=== PATIENT | female | born 1950 | race Caucasian/White ===

== ENCOUNTER 2019-08-17 11:20 | Outpatient (REF) | payer MEDICARE, MEDICAID, SELFPAY ==
[2019-08-17 12:09] LABS: HCT 42.1 % (36.0-46.0); HGB 13.8 g/dL (12.0-15.5); Mean Corp. HGB Concentration 32.8 g/dL (32.0-36.0); Mean Corpuscular Hemoglobin 30.3 pg (27.0-33.0); Mean Corpuscular Volume 92.3 fL (80-95); Mean Platelet Volume 10.7 fL (8.0-11.0); Platelet Count 182 x1000/uL (130-400); RBC 4.56 m/cumm (4.00-5.20); RBC Distribution Width 13.8 % (11.7-14.6); White Blood Cell Count 6.86 k/cumm (4.4-10.8)
[2019-08-17 12:37] LABS: ALT 13 U/L (14-59); AST 14 U/L (15-37); Albumin 3.6 g/dL (3.4-5.0); Alkaline Phosphatase 78 U/L (46-116); Anion Gap 9.1 mmol/L (3-11); BUN 16 mg/dL (7-18); Bilirubin, Total 0.2 mg/dL (0.2-1.0); CO2 26.9 mmol/L (21.0-32.0); CREATININE 0.78 mg/dL (0.55-1.02); Calcium 8.1 mg/dL (8.5-10.1); Chloride 106 mmol/L (98-107); Glucose 116 mg/dL (74-106); Potassium 4.2 mmol/L (3.5-5.1); Sodium 142 mmol/L (136-145); TSH (W/Ref FT4) 12.66 uIU/mL (0.36-3.74); Total Protein 6.4 g/dL (6.4-8.2); Uric Acid 4.4 mg/dL (2.6-6.0)
[2019-08-17 13:01] LABS: FREE T4 1.01 ng/dL (0.76-1.46)
[2019-08-17 13:54] LABS: Vitamin B12 204 pg/mL (193-986)
[2019-08-18 07:59] LABS: Vitamin D 25 Total < 5 ng/ml (30-100)
== END 2019-08-17 11:40 ==
LOC: NCHCN 11:20
PROVIDERS: PCP Internal Medicine; Visit Provider Internal Medicine
DX: I10 Essential (primary) hypertension (principal); E55.9 Vitamin D deficiency, unspecified; F41.8 Other specified anxiety disorders; R41.3 Other amnesia; N39.46 Mixed incontinence; M48.061 Spinal stenosis, lumbar region without neurogenic claudication; M13.861 Other specified arthritis, right knee; J44.9 Chronic obstructive pulmonary disease, unspecified
CPT/HCPCS: 80053; 82306; 85027; 82607; 84439; 84443; 84550

== ENCOUNTER 2020-04-11 10:53 | Outpatient (REF) | payer MEDICARE, MEDICAID, SELFPAY ==
[2020-04-11 21:33] LABS: FREE T4 1.07 ng/dL (0.76-1.46); TSH 6.82 uIU/mL (0.36-3.74)
[2020-04-13 05:41] LABS: Vitamin D 25 Total 25.4 ng/ml (30-100)
== END 2020-04-11 11:13 ==
LOC: NCHCN 10:53
PROVIDERS: PCP Internal Medicine; Visit Provider Internal Medicine
DX: F41.8 Other specified anxiety disorders (principal); E55.9 Vitamin D deficiency, unspecified
CPT/HCPCS: 82306; 84439; 84443

== ENCOUNTER 2021-09-04 15:15 | Outpatient (REF) | payer MEDICARE, MEDICAID, SELFPAY ==
[2021-09-04 14:46] LABS: FREE T4 1.05 ng/dL (0.76-1.46); TSH 4.57 uIU/mL (0.36-3.74)
[2021-09-05 09:52] LABS: Anion Gap 10.6 mmol/L (3-11); BUN 16 mg/dL (7-18); CO2 25.4 mmol/L (21.0-32.0); CREATININE 0.9 mg/dL (0.55-1.02); Calcium 8.7 mg/dL (8.5-10.1); Chloride 101 mmol/L (98-107); Glucose 127 mg/dL (74-106); Potassium 4.2 mmol/L (3.5-5.1); Sodium 137 mmol/L (136-145)
== END 2021-09-04 15:16 | disposition home or self-care (01) ==
LOC: NCHCN 15:15
PROVIDERS: PCP Internal Medicine; Visit Provider Internal Medicine
DX: E03.9 Hypothyroidism, unspecified (principal); I10 Essential (primary) hypertension
CPT/HCPCS: 80048; 84439; 84443

== ENCOUNTER 2022-02-05 11:09 | Emergency (ER) | payer MEDICARE, MEDICAID, SELFPAY ==
[2022-02-05] VITALS (17 sets, daily range): BP systolic 69–125; BP diastolic 46–93; PULSE 89–131; RESP 18–30; TEMP 36.6; O2SAT 90–98
--- NOTE | 2022-02-05 11:00 | RT.EKG_ITS ---
APPROVED REPORT Exam: Resting ECG Reason for Exam: respiratory distress Patient Location: E HR:104 bpm ECG Measurements Heart Rate 104 AXIS VA 134 P 57 QRSd 93 QRS 61 QT 329 T 80 QTc 433 Conclusion Sinus tachycardia...rate> 99 Ventricular premature complex...V complex w/ short R-R interval Inferior infarct, acute...ST>0.10mV, T upright, II III aVF. Inferior STEMI I have reviewed and interpreted ECG and agree with software generated interpretation.
--- NOTE | 2022-02-05 11:15 | W.ED.GENAD ---
Discharge Plan Disposition Patient Disposition: [facility] Condition: Critical Discharge Details Clinical Impression: STEMI (ST elevation myocardial infarction), Acute exacerbation of chronic obstructive pulmonary disease Primary Care Provider: Jitendra Schwab ED Provider: Kaya Ruggiero Home Meds and New Rx's Prescriptions: No Action levothyroxine 25 MCG tablet 100 mcg PO DAILY mirtazapine 30 MG tablet 30 mg PO HS naproxen 250 MG tablet 500 mg PO BID lorazepam [Ativan] 0.5 MG tablet 0.5 mg PO ONCE lansoprazole 15 MG capsule,delayed release(DR/EC) 15 mg PO DAILY gabapentin 300 MG capsule 300 mg PO TID Label Comments: 02/27/15 per pt she is currently taking this medication TID but it is not on her PCP med list. jw fluticasone propion-salmeterol [Advair Diskus] 1 EACH blister with device 2 puff Inhalation BID sennosides-docusate sodium [Senokot-S] 1 EACH tablet 1 ea PO DAILY clopidogrel [Plavix] 75 MG tablet 75 mg PO DAILY fentanyl [Duragesic] 100 MCG patch 72 hour 100 mcg Transdermal .2 DAYS fentanyl [Duragesic] 25 MCG patch 72 hour 25 mcg Transdermal .Q 2 DAYS citalopram 40 MG tablet 40 mg PO DAILY pravastatin 40 MG tablet 40 mg PO HS spironolactone 25 MG tablet 25 mg PO DAILY dicyclomine 20 MG tablet 20 mg PO PRN PRN docusate sodium [Colace] 100 MG capsule 100 mg PO DAILY bisacodyl 5 MG tablet,delayed release (DR/EC) 5 mg PO DAILY polyethylene glycol 3350 [GlycoLax] 527 GM powder 17 gm PO DAILY PRN albuterol sulfate [Ventolin HFA] 60 PUFF HFA aerosol inhaler 2 puff Inhalation .Q6HRS PRN losartan [Cozaar] 100 MG tablet 100 mg PO DAILY Spiriva with HandiHaler 18 MCG capsule, w/inhalation device 2 puff Inhalation DAILY morphine 15 MG tablet 15 mg PO TID PRN PRN diltiazem HCl 240 MG capsule,extended release 24hr 240 mg PO DAILY albuterol sulfate [ProAir HFA] 8.5 GM HFA aerosol inhaler 2 puff Inhalation Q6H PRN PRN pregabalin [Lyrica] 50 MG capsule 50 mg PO TID Discharge Data Discharge Date/Time-TO BE ENTERED AT DEPARTURE: 02/05/22 12:46 Medical Decision Making 1120 -- 71-year-old female who is DNI with a history of COPD, tobacco dependence, hypertension, arthritis, anxiety presents per EMS as a STEMI alert with respiratory failure and hypoxia. Oxygen saturation 48% on room air on EMS arrival on scene, improved to 94% after 3 nebs and CPAP. Patient arrived to the ED with CPAP in place stating I cannot breathe . Blood pressure 108/65. Heart rate 100. Oxygen saturation 94% on CPAP. She has scattered wheezing throughout. 125 Solu-Medrol, DuoNeb and morphine ordered. EKG notes inferior STEMI. [facility] transfer initiated. Rectal aspirin ordered. Heparin bolus and drip ordered. We will hold on Plavix but she is unable to take p.o. with bipap. 1130 -- Case discussed with patient's daughter over the phone who confirms that patient told Dr. Schwab this morning she has DNI. Daughter states she feels that she is not DNR but she is unsure. She is agreeable with plan for transfer to [facility] for STEMI. Son is now at bedside as well and is agreeable with plan for transfer as patient is drowsy and in distress to answer. 1145 --Case discussed with [facility] cardiology who accepts patient for transfer. Accepting physician Dr. Burns. They were informed we were unable to give oral Plavix due to bipap. Patient appears to be more comfortable and tolerating BIPAP better after morphine and Ativan. Pt go to by [facility]. 1205 --portable chest x-ray revealed complete whiteout of right lung --discussed with radiology who notes that this could likely be effusion but cannot exclude underlying consolidation. White blood cell count 22. We will start IV antibiotics. She is now hypotensive at 75/54. We will bolus with IV fluids but give a dose of 40 mg Lasix. Medical Records Medical records reviewed: Yes I reviewed the patient's medical records. ECG Data Attestation: I personally reviewed and interpreted this ECG (s) as follows: Interpretation: rate of 104, sinus, 2-[address] elevation in inferior leads, 1mm ST elevation in V5-6. HPI General Date/Time Provider Initiated Documentation: 02/05/22 11:14. Limitations to Documentation: altered mental status and physical limitation. Information obtained by: patient and EMS. HPI Narrative: Patient is a 71-year-old female with a history of tobacco dependence, COPD, hypertension and anxiety presents from home for cough and shortness of breath with report of respiratory failure, hypoxia and concern for STEMI. EMS reports that daughter called PCP office for evaluation for her mom for cough and increasing shortness of breath. Upon EMS arrival on scene oxygen saturation 48% on room air which increased to 94% on CPAP and [address] elevation on ekg. patient arrived to the ED wearing CPAP stating I cannot breathe Related Data Home Medications Medication Instructions Recorded Confirmed albuterol sulfate 90 mcg/actuation 2 puff inhalation .Q6HRS PRN 04/11/13 02/05/22 aerosol inhaler (Ventolin HFA) bisacodyl 5 mg tablet,delayed 5 mg PO DAILY 04/11/13 02/05/22 release citalopram 40 mg tablet 40 mg PO DAILY 04/11/13 02/05/22 clopidogrel 75 mg tablet (Plavix) 75 mg PO DAILY 04/11/13 02/05/22 dicyclomine 20 mg tablet 20 mg PO PRN PRN 04/11/13 02/05/22 docusate sodium 100 mg capsule 100 mg PO DAILY 04/11/13 02/05/22 (Colace) fentanyl 100 mcg/hr transdermal 100 mcg transdermal .2 DAYS 04/11/13 02/05/22 patch (Duragesic) fentanyl 25 mcg/hr transdermal 25 mcg transdermal .Q 2 DAYS 04/11/13 02/05/22 patch (Duragesic) fluticasone 250 mcg-salmeterol 50 2 puff inhalation BID 04/11/13 02/05/22 mcg/dose blistr powdr for inhalation (Advair Diskus) losartan 100 mg tablet (Cozaar) 100 mg PO DAILY 04/11/13 02/05/22 polyethylene glycol 3350 17 17 gm PO DAILY PRN 04/11/13 02/05/22 gram/dose oral powder (GlycoLax) pravastatin 40 mg tablet 40 mg PO HS 04/11/13 02/05/22 sennosides 8.6 mg-docusate sodium 1 ea PO DAILY 04/11/13 02/05/22 50 mg tablet (Senokot-S) spironolactone 25 mg tablet 25 mg PO DAILY 04/11/13 02/05/22 tiotropium bromide 18 mcg capsule 2 puff inhalation DAILY 04/11/13 02/05/22 with inhalation device (Spiriva with HandiHaler) gabapentin 300 mg capsule 300 mg PO TID 07/25/14 02/05/22 lansoprazole 15 mg capsule,delayed 15 mg PO DAILY 07/25/14 02/05/22 release levothyroxine 25 mcg tablet 100 mcg PO DAILY 07/25/14 02/05/22 lorazepam 0.5 mg tablet (Ativan) 0.5 mg PO ONCE 07/25/14 02/05/22 mirtazapine 30 mg tablet 30 mg PO HS 07/25/14 02/05/22 naproxen 250 mg tablet 500 mg PO BID 07/25/14 02/05/22 albuterol sulfate 90 mcg/actuation 2 puff inhalation Q6H PRN PRN 02/27/15 02/05/22 aerosol inhaler (ProAir HFA) diltiazem HCl 240 mg 240 mg PO DAILY 02/27/15 02/05/22 capsule,extended release 24 hr morphine 15 mg immediate release 15 mg PO TID PRN PRN 02/27/15 02/05/22 tablet pregabalin 50 mg capsule (Lyrica) 50 mg PO TID 02/27/15 02/05/22 Allergies Allergy/AdvReac Type Severity Reaction Status Date / Time aspirin [From Aggrenox] AdvReac Intermediate per pt on Unverified 03/01/15 13:31 blood thinners can't take asa atorvastatin calcium AdvReac Intermediate Unverified 03/01/15 13:46 [From Lipitor] dipyridamole [From Aggrenox] AdvReac Intermediate HEADACHE Unverified 03/01/15 13:31 enalapril AdvReac Intermediate HIVES Unverified 03/01/15 13:46 lactulose AdvReac Intermediate VOMITING Unverified 03/01/15 13:31 niacin AdvReac Intermediate HEADACHE Unverified 03/01/15 13:31 [From Niaspan Extended-Release] sulfamethoxazole AdvReac Intermediate HIVES Unverified 03/01/15 13:46 [From Bactrim] trimethoprim [From Bactrim] AdvReac Intermediate HIVES Unverified 03/01/15 13:46 verapamil AdvReac Intermediate MULTIPLE Unverified 03/01/15 13:46 General Stated Complaint: SOB KARTHIKEYAN: 2 Review of Systems Unobtainable due to mental status Constitutional Constitutional: Denies chills, Denies excessive sweating, Denies fatigue, Denies fever(s), Denies weakness and Denies weight loss Eyes Eyes: Reports system reviewed and no additional complaints, except as documented and Denies blurry vision ENT Ears, Nose, Mouth, and Throat: Denies vertigo, Denies dizziness, Denies otalgia, Denies nasal congestion, Denies sore throat and Denies throat swelling Cardiovascular Cardiovascular: Denies chest pain, Denies syncope, Denies rapid heart rate and Reports dyspnea Respiratory Respiratory: Denies chest congestion, Reports cough, Denies pain on inspiration and Reports dyspnea Gastrointestinal Gastrointestinal: Denies abdominal pain, Denies diarrhea and Denies vomiting Genitourinary Genitourinary: Denies hematuria, Denies dysuria and Denies flank pain Musculoskeletal Musculoskeletal: Denies back pain and Denies joint swelling Integumentary/Breasts Skin/Breast: Denies lesions and Denies rash Neurologic Neurologic: Denies behavioral changes, Denies confusion, Denies vertigo, Denies dizziness, Denies syncope, Denies localized weakness and Denies weakness Psychiatric Psychiatric: Denies behavioral changes, Denies confusion and Denies depression Endocrine Endocrine: Denies excessive sweating and Denies fatigue Hematologic/Lymphatic Hematologic/Lymphatic: Denies easy bruising and Denies lymphadenopathy Allergic/Immunologic Allergic/Immunologic: Denies throat swelling PFSH All Active Problems (Updated 02/05/22 @ 11:47 by Kaya Ruggiero DO) STEMI (ST elevation myocardial infarction) (Acute) Acute exacerbation of chronic obstructive pulmonary disease (Acute) Medical History (Updated 02/05/22 @ 11:47 by Kaya Ruggiero DO) Anxiety Arthritis carotid arterosclerosis Chronic pain COPD CVA Depression hematuria History of hypertension Incontinence Insomnia Memory impairment Tobacco use disorder Surgical History (Updated 05/13/18 @ 14:33 by Hingi AK) Extraction of cataract bilateral Hysterectomy, Laproscopic no date given.HE Social History Smoking/Tobacco Use Status: Current every day Smoking risk assessment performed?: Yes Drug use: Never Exam Const General: cooperative, disheveled, ill appearing chronically and other (drowsy but arousable. ) [facility] Head: normal to inspection Ears: hearing grossly normal bilaterally, external ears normal and TM's normal bilaterally General nose exam: external nose normal Face and sinus: normal facial exam Mouth: oral mucosae normal Teeth and gingiva: dentition normal Throat: posterior oropharynx normal Eyes General: appearance normal, both eyes and all related structures Eyelids: eyelids normal Pupils: PERRL EOM: EOM intact bilaterally Neck Neck: normal visual inspection Lymphatic: no lymphadenopathy noted Chest Chest: normal inspection of the chest Resp Effort & Inspection: normal respiratory effort and able to speak in complete sentences Auscultation: wheezes scattered wheezes Cardio Rate: regular rate Rhythm: regular rhythm GI Inspection: normal to inspection Palpation: soft, not firm, no guarding, no hepatosplenomegaly, no masses and nontender Auscultation: normal bowel sounds Back/Spine/Pelvis Back: no CVA tenderness Skin General skin exam: no rashes or lesions noted Neuro General: patient alert and patient awake Cognition: normal cognition Speech: speech normal Gait: normal gait Motor: muscle tone normal throughout Sensory Exam: no sensory deficits noted Extrem General: normal to inspection, full ROM and capillary refill normal Psych Appearance: grossly normal Mental Status: mental status grossly normal Speech and Movement: speech and movement normal Affect: normal affect Thought Process: normal Critical Care Time Critical Care Time Critical Care Time: Yes Total Critical Care Time: 90 Attestation: I spent 90 minutes of critical care time with this patient. This does not include time spent on separately reported billable procedures.
[2022-02-05] MEDS: methylPREDNISolone SUCC 125 MG VIAL (11:18)
[2022-02-05] MEDS: MORPHine 4 MG/ML SYR IVP (11:19)
--- NOTE | 2022-02-05 11:30 | DI.RAD_ITS ---
Exam(s) XR PORTABLE CHEST AP EXAM: XR PORTABLE CHEST AP CLINICAL HISTORY: chest pain, sob, r/o acute disease TECHNIQUE: 2D digital imaging was performed of the chest. One image was obtained. An AP view was ob tained. COMPARISON: CR CHEST 2 VIEWS PA,LAT from 09/13/2009 CT HEAD WITHOUT CONTRAST from 07/26/2014 FINDINGS: MEDIASTINUM: Normal. HEART: Cardiac silhouette is obscured on the right due to the right hemithorax opacification. PULMONARY VASCULATURE: Normal. LUNGS: There is near complete opacification of the right hemithorax with an area of lung seen in the upper half. This appears to in some part represent a right pleural effusion. An area of right conso lidation cannot be excluded in the right lung base. Underlying mass should also be considered. Ther e is a small area of infiltrate in the left mid lung. No left pleural effusion or pneumothorax is id entified. PLEURAL SPACE: No pleural effusion or pneumothorax. BONE:Within normal limits for the patient's age. OTHER FINDINGS:Normal. IMPRESSION: 1. Near complete opacification of the right hemithorax. This in part is related to a right pleural e ffusion. A right mass or consolidation in the right lung should also be considered. A CT scan of th e chest should be obtained for further evaluation. 2. Small opacity in the left mid lung which may represent atelectasis or pneumonia. 3. Results of this exam have been verbally communicated with provider. DATA REPOSITORY: RADIATION DOSE DELIVERED:
[2022-02-05 11:37] LABS: Source Nasal/Nares
[2022-02-05 11:39] LABS: Abs Immature Grans 0.17 10^3/uL (0.0-0.06); Absolute Monocyte Count 1.27 10^3/uL (0.1-0.8); Absolute Neutrophil Count 20.24 10^3/uL (1.2-6.7); Basophils % 0.1; Eosinophils % 0.3; HCT 35.8 % (36.0-46.0); HGB 12.5 g/dL (11.2-15.7); Immature Grans % 0.8; Lymphocytes % 3.9; MCH 29.9 pg (27.0-33.0); MCHC 34.9 % (32.0-36.0); MCV 86 fL (80-95); MPV 10.5 fL (8.0-11.0); Monocytes % 5.6; Neutrophils % 89.3; Platelet Count 328 10^3/uL (130-400); RBC 4.18 10^6/uL (3.93-5.22); RDW 13.5 % (11.7-14.6); RDW-SD 41.8 fL; WBC 22.66 10^3/uL (4.4-10.8)
[2022-02-05] MEDS: Albuterol/Ipratropium 3 ML UPD VIAL UPD (11:40)
[2022-02-05] MEDS: LORazepam 2 MG/ML VIAL 1 MG IVP (11:40)
[2022-02-05 11:42] LABS: Absolute Basophil Count 0.02 10^3/uL (0.0-0.2); Absolute Eosinophil Count 0.07 10^3/uL (0.0-0.7); Absolute Lymphocyte Count 0.88 10^3/uL (1.2-3.4)
[2022-02-05 11:52] LABS: INR 1.3 (0.9-1.1); PTT Activated 23.7 sec (21.0-27.5); Prothrombin Time 12.7 sec (9.3-11.0)
[2022-02-05 11:55] LABS: Diff Comment Agrees w/ Instrument; RBC Morphology Normal
[2022-02-05] MEDS: Aspirin 300 MG SUPP PR (11:58)
[2022-02-05 12:03] LABS: ALT 21 U/L (14-59); AST 44 U/L (15-37); Albumin 2.1 g/dL (3.4-5.0); Alkaline Phosphatase 137 U/L (46-116); Anion Gap 11.3 mmol/L (3-11); BUN 50 mg/dL (7-18); Bilirubin, Total 0.6 mg/dL (0.2-1.0); CO2 24.7 mmol/L (21.0-32.0); CREATININE 1.2 mg/dL (0.55-1.02); Calcium 8.5 mg/dL (8.5-10.1); Chloride 88 mmol/L (98-107); Estimated GFR 44.16 (mL/min/1.73m2); Glucose 104 mg/dL (74-106); Magnesium 2.3 mg/dL (1.8-2.4); Potassium 5.1 mmol/L (3.5-5.1); Total Protein 6.8 g/dL (6.4-8.2)
[2022-02-05 12:04] LABS: Sodium 124 mmol/L (136-145); Troponin I 4264 ng/L (<or=60)
--- OUTSIDE RECORDS SUMMARY | 2022-02-05 12:16 | XMS_ITS | Encounter Summary ---
:1950 Author Organization [place] [address] Care Team Providers Name Role Phone Jitendra Schwab MD Primary Care Provider Encounter Details Date Type Department Care Team Description 12/02/2014 Telephone Pain Management at [facility] [place], [place] [id number] Social History Tobacco Use Types Packs/Day Years Used Date Current Every Day Smoker 0.5 Alcohol Use Standard Drinks/Week Comments No 0 (1 standard drink = 0.6 oz pure alcoho l) Sex Assigned at Date Recorded Not on file documented as of this encounter Miscellaneous Notes Telephone Encounter - Vandana Harris, [employer] - 12/02/2014 1:18 PM EDT Gianna Hermosillo :1950 Message left: I left a message on answering machine Ms. Hermosillo at 1:18 PM regarding her upcoming Neither lumbar epidural steroid injection with Dr. Fozia Rosa MD. Message included the followin. Patient instructed to arrive at 10:15 (30 minutes prior to procedure start time) on 12-06-14 (dateof procedure) with their customer service driver. 2. Following instructions left in the message: - Bring Updated list of medications including dosage and reason for taking. - Call the Pain Clinic Nurse at for: ~Procedure instructions. ~If you are taking antibiotics. ~If you have any signs or symptoms of infection, cold or flu. ~If you have any skin breakdown (rashes, cysts, or abscess.) ~If you are taking anticoagulants / blood thinners (Plavix, Pletal, Lovenox, Coumadin, etc). ~If you had any steroid injections anywhere in your body within the last two weeks? 3. If patient NPO: No food after (6 hours prior to procedure start time); clear fluids only up until(2 hours prior to procedure start time) Vandana Harris LPN documented in this encounter Plan of Treatment Not on filedocumented as of this encounter Visit Diagnoses Not on filedocumented in this encounter Care Teams Podiatry Assistant Relationship Specialty Start Date End Date Jitendra Schwab MD PCP - General 06/19/10 [address] [place] [address] documented as of this encounter
--- OUTSIDE RECORDS SUMMARY | 2022-02-05 12:16 | XMS_ITS | Encounter Summary ---
:1950 [place] [address] Care Team Providers Name Role Phone Jitendra Schwab MD Primary Care Provider Encounter Details Date Type Department Care Team Description 06/21/2014 Telephone Pain Management at [place] [address] Social History Tobacco Use Types Packs/Day Years Used Date Current Every Day Smoker 0.5 Alcohol Use Standard Drinks/Week Comments No 0 (1 standard drink = 0.6 oz pure alcoho l) Sex Assigned at Date Recorded Not on file documented as of this encounter Miscellaneous Notes Telephone Encounter - Mansi Muñoz LPN - 06/21/2014 4:03 PM EST Gianna Hermosillo :1950 Message left: I left a message on answering machine Ms. Hermosillo at 4:03 PM regarding her upcoming lumbar epidural steroid injection with Dr. Giovanni Davalos MD. Message included the followin. Patient instructed to arrive at 1445 (30 minutes prior to procedure start time) on 06/22/14 (dateof procedure) with their driver examiner. 2. Following instructions left in the message: [...] 3. If patient NPO: No food after 0915 (6 hours prior to procedure start time); clear fluids only up until 1315 (2 hours prior to procedure start time) Mansi Muñoz LPN documented in this encounter Plan of Treatment Not on filedocumented as of this encounter Visit Diagnoses Not on filedocumented in this encounter Care Teams Informatic[employer] Architect Relationship Specialty Start Date End Date Jitendra Schwab MD PCP - General 06/19/10 [address] [place] [address] documented as of this encounter
--- OUTSIDE RECORDS SUMMARY | 2022-02-05 12:16 | XMS_ITS | Clinical Summary ---
:1950 Author Organization [facility] [place] [address] Care Team Providers Name Role Phone Jitendra Schwab MD Primary Care Provider Allergies Active Allergy Reactions Severity Noted Date Comments Aspirin-Dipyridamole 01/07/2013 Headach e Sulfamethoxazole-Trimetho 01/07/2013 prim Enalapril Maleate 01/07/2013 Lactulose Nausea And Vomiting 01/07/2013 Atorvastatin 01/07/2013 Headache Niacin 01/07/2013 Headache Oxycodone Hcl Hives 01/07/2013 Mirtazapine 01/07/2013 Weight gain Verapamil 01/07/2013 Multiple side effects Medications Medication Sig Dispensed Refills Start Date End Date Status Eye Lubricant Apply 1 drop to eye 5 mL 6 08/07/2012 Active Combination No.1 4 times daily. (FRESHKOTE) 2-0.9-1.8 % Drop bisacodyl (DULCOLAX) Take 5-15 mg by 0 Active 5 mg EC tablet mouth daily. albuterol (PROVENTIL Inhale 2 puffs into 0 Active HFA;VENTOLIN HFA) 90 the lungs every 6 mcg/actuation inhaler hours as needed. albuterol (PROVENTIL) Take by 0 Active 2.5 mg /3 mL (0.083 nebulization every %) nebulizer solution 6 hours. dicyclomine (BENTYL) Take 20 mg by mouth 0 Active 20 mg tablet 4 times daily as needed. spironolactone Take 25 mg by mouth 0 Active (ALDACTONE) 25 mg daily. tablet naproxen (NAPROSYN) Take 375 mg by 0 Active 375 mg tablet mouth 2 times daily. tiotropium (SPIRIVA Inhale 18 mcg into 0 Active WITH HANDIHALER) 18 the lungs daily. mcg inhalation capsule losartan (COZAAR) 100 Take 100 mg by 0 Active mg tablet mouth daily. pravastatin Take 40 mg by mouth 0 Active (PRAVACHOL) 40 mg daily. tablet senna-docusate Take 2 tablets by 0 Active (SENOKOT-S) 8.6-50 mg mouth 2 times per tablet daily. omeprazole (PRILOSEC Take 20 mg by mouth 0 Active OTC) 20 mg tablet 2 times daily. fluticasone-salmetero Inhale 1 puff into 0 Active l (ADVAIR DISKUS) the lungs 2 times 250-50 mcg/dose daily. diskus inhaler clopidogrel (PLAVIX) Take 75 mg by mouth 0 Active 75 mg tablet daily. docusate sodium (DOK) Take 100-200 mg by 0 Active 100 mg capsule mouth 2 times daily. zolpidem (AMBIEN) 10 Take 10 mg by mouth 0 Active mg tablet nightly. DILTiazem (DILT-CD) Take 120 mg by 0 Active 120 mg 24 hr capsule mouth daily. morphine (MSIR) 15 mg Take 15 mg by mouth 0 Active tablet 4 times daily as needed. fentaNYL (DURAGESIC) Place 1 patch onto 0 Active 100 mcg/hr the skin every other day. fentaNYL (DURAGESIC) Place 1 patch onto 0 Active 25 mcg/hr patch the skin every other day. citalopram (CELEXA) Take 40 mg by mouth 0 Active 40 mg tablet nightly. polyethylene glycol Take 17 g by mouth 0 Active (GLYCOLAX) 17 1-2 times daily. gram/dose powder milnacipran (SAVELLA) Take 100 mg by 0 Active 50 mg Tab mouth 2 times daily. 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 although she does have some symptoms tr t could be consistent with L4 and L5 pathology, as well as upper lumbar pathology with relative sparing of S1. It does not explain her upper extremities and upper body pain, particularly her facial pain and difficulty with speech that occurred at the same time as the onset of her leg pain. If her multiple sclerosis workup is negative and it is still desired to c onsider an epidural steroid it would be reasonable to schedule her for one; however, the risk of thrombotic events would have to be weighed against the potential benefit of the epidural steroid, She was evaluated by a neurologist who d id not feel she had MS, but recommended staying on plavix for prevention of possible strokes and he felt the leg pain was a radiculopathy. MRI repeat lumbar spine 02/08/2010 showed : L4-L5: Broad left paracentral foraminal and lateral protrusion along with facet arthropathy produces moderate left neural foraminal stenosis. No significant central stenosis. IMPRESSION: Disc degenerative changes a nd facet arthropathy at several levels as outlined above, most pronounced at L4-L5 where th ere is moderate left foraminal stenosis. Dr Schwab notes these additional issues: She is a poor historian. 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 H/O TIA (transient ischemic attack) and stroke Encounters Date Type Specialty Care Team Description 02/05/2022 Notes Only Cardiology Сергей Schultz MD 02/05/2022 Hospital Encounter Cardiology Claribel Burns MD 02/05/2022 Telephone Cardiology Сергей Schultz MD 02/05/2022 External Results Central Scheduling from Last 3 Months Family History Medical History Relation Comments Cataracts Father Glaucoma Mother Macular Degeneration Mother Retinal Detachment Neg Hx Relation Status Comments Father Mother Social History Tobacco Use Types Packs/Day Years Used Date Current Every Day Smoker 1 Alcohol Use Standard Drinks/Week Comments No 0 (1 standard drink = 0.6 oz pure alcoho l) Sex Assigned at Date Recorded Not on file Last Filed Vital Signs Vital Sign Reading Time Taken Comments Blood Pressure 160/80 05/08/2015 2:50 PM EDT Pulse 92 05/08/2015 2:50 PM EDT Temperature - - Respiratory Rate 16 05/08/2015 2:50 PM EDT Oxygen Saturation 95% 05/08/2015 2:50 PM EDT Inhaled Oxygen Concentration - - Weight 80.3 kg (177 lb) 05/08/2015 2:25 PM EDT Height 165.1 cm (5' 5) 05/08/2015 2:25 PM EDT Body Mass Index 29.45 05/08/2015 2:25 PM EDT Plan of Treatment Health Maintenance Due Date Last Done Comments Covid-19 Vaccine (#1) 1954 Pneumoccocal Vaccine: 65+ (1 - PCV) 1955 Hepatitis C Screening 1967 Tdap adult 1968 Tetanus vaccine 1968 Breast Cancer Share Decision Needed 1989 Colonoscopy 1994 Breast Cancer screening 1999 Zoster vaccine (1 of 2) 1999 Bone Density Scan 2014 Influenza (Flu) vaccine (1 of 1 - Influenza standard 03/28/2022 series) Procedures Procedure Name Priority Date/Time Associated Diagnosis Comme nts ECG SCAN Routine 02/05/2022 Results for thi s procedure are in the resu lts section. from Last 3 Months Results Scan Doc: ECG (02/05/2022) Narrative This result has an attachment that is no t available. Historical Provider MEDIA MGR SCAN EXT ORDR/RSLT from Last 3 Months Insurance Payer Benefit Plan / Subscriber ID Effective Dates Phone Addre ss Type Group MEDICARE MEDICARE PART [id number] 2006-Gillian [id number] [facility] [place] [id number] [place] [id number] 2019-Prese [phone] [address] [place] [address] Advance Directives Documents on File Type Date Recorded Patient Prison Psychiatrist Explanati on Advance Directives and Living 09/25/2010 4:30 PM Will Care Teams Nurse Reviewer Relationship Specialty Start Date End Date Jitendra Schwab MD PCP - General 06/19/10 [address] [place] [address]
--- OUTSIDE RECORDS SUMMARY | 2022-02-05 12:16 | XMS_ITS | Encounter Summary ---
:1950 Author Organization [facility] [place] [address] Care Team Providers Name Role Phone Jitendra Schwab MD Primary Care Provider Encounter Details Date Type Department Care Team Description 11/02/2015 Telephone Pain Management at Vandana Bryson, [place] [address] Social History Tobacco Use Types Packs/Day Years Used Date Current Every Day Smoker 1 Alcohol Use Standard Drinks/Week Comments No 0 (1 standard drink = 0.6 oz pure alcoho l) Sex Assigned at Date Recorded Not on file documented as of this encounter Miscellaneous Notes Telephone Encounter - Vandana Harris LPN - 11/02/2015 11:20 AM EDT Fluoroscopy Procedure Request Procedure Requested: Neither L5-DR or S1 lumbar epidural steroid injection Date(s) of Last Procedure: 05-08-15 Did requested procedure relieve pain? __x_ Yes - For how long 2months? 50 % of relief received from previous injection. ___ No Have you had any steroid injections anywhere in your body within the last two weeks? no Patient taking anticoagulants? ___ No x___ Yes Patient understands that they will be contacted by spring tacker once permission obtained from prescriber Dr Marty Schwab to temporarily discontinue anticoagulant plavix per [facility] protocol. Patient has pacemaker/defibrillator: No Changes in usual pain pattern or pertinent recent trauma or surgery? __x_ No, patient transferred or will be contacted by spring tacker to make appointment for requested procedure. ___ Yes, patient referred for re-evaluation by referring provider. Patient's questions regarding requested procedure were answered and patient verbalized understanding. Patient knows how to contact the [facility] and understands that they may do so at any time should they have further questions or concerns. Vandana Harris LPN documented in this encounter Plan of Treatment Not on filedocumented as of this encounter Visit Diagnoses Not on filedocumented in this encounter Care Teams Heat And Frost Insulator Helper Relationship Specialty Start Date End Date Jitendra Schwab MD PCP - General 06/19/10 [address] [place] [address] documented as of this encounter
--- OUTSIDE RECORDS SUMMARY | 2022-02-05 12:16 | XMS_ITS | Encounter Summary ---
:1950 Author Organization [place] [address] Care Team Providers Name Role Phone Jitendra Schwab MD Primary Care Provider Encounter Details Date Type Department Care Team Description 01/03/2016 Telephone Pain Management [place] [address] Social History Tobacco Use Types Packs/Day Years Used Date Current Every Day Smoker 1 Alcohol Use Standard Drinks/Week Comments No 0 (1 standard drink = 0.6 oz pure alcoho l) Sex Assigned at Date Recorded Not on file documented as of this encounter Miscellaneous Notes Telephone Encounter - Halina Goncalves LPN - 01/03/2016 12:30 PM EDT Voicemail from pt: This is Gianna Hermosillo 48. I have an appointment at 10:00. My ride fell though. I am very sorry I can't make it. I will call later to reschedule. [place] notified. documented in this encounter Plan of Treatment Not on filedocumented as of this encounter Visit Diagnoses Not on filedocumented in this encounter Care Teams Reverse Engineer Relationship Specialty Start Date End Date Jitendra Schwab MD PCP - General 06/19/10 [address] [place] [address] documented as of this encounter
--- OUTSIDE RECORDS SUMMARY | 2022-02-05 12:16 | XMS_ITS | Encounter Summary ---
:1950 Author Organization [facility] [place] [address] Care Team Providers Name Role Phone Jitendra Schwab MD Primary Care Provider Encounter Details Date Type Department Care Team Description 01/02/2016 Telephone Pain Management at [facility] Vandana Harris, [place] [address] Social History Tobacco Use Types Packs/Day Years Used Date Current Every Day Smoker 1 Alcohol Use Standard Drinks/Week Comments No 0 (1 standard drink = 0.6 oz pure alcoho l) Sex Assigned at Date Recorded Not on file documented as of this encounter Miscellaneous Notes Telephone Encounter - Vandana Harris, ELLA - 01/02/2016 1:44 PM EDT .Gianna Hermosillo :1950 Message left: I left a message on answering machine Ms. Hermosillo at 1:47 PM regarding her upcoming Neither lumbar epidural steroid injection with Dr. Giovanni Davalos MD. Message included the followin. Patient instructed to arrive at 10:00 (30 minutes prior to procedure start time) on 01-03-16 (date of procedure) with their regional driver. 2. Following instructions left in the [...] on filedocumented in this encounter Care Teams Restaurant District Manager Relationship Specialty Start Date End Date Jitendra Schwab MD PCP - General 06/19/10 [address] [place] [address] documented as of this encounter
--- OUTSIDE RECORDS SUMMARY | 2022-02-05 12:16 | XMS_ITS | Encounter Summary ---
:1950 Author Organization [facility] [place] [address] Care Team Providers Name Role Phone Jitendra Schwab MD Primary Care Provider Encounter Details Date Type Department Care Team Description 04/19/2015 Telephone Pain Management at V[place]ana [place], [place] [address] Social History Tobacco Use Types Packs/Day Years Used Date Current Every Day Smoker 0.5 Alcohol Use Standard Drinks/Week Comments No 0 (1 standard drink = 0.6 oz pure alcoho l) Sex Assigned at Date Recorded Not on file documented as of this encounter Miscellaneous Notes Telephone Encounter - Vandana Harris, ELLA - 04/19/2015 4:04 PM EDT Fluoroscopy Procedure Request Procedure Requested: Neither lumbar epidural steroid injection Date(s) of Last Procedure: 12-06-14 Did requested procedure relieve pain? _x__ Yes - For how long 3 months? 50 % of relief received from previous injection. ___ No Have you had any steroid injections anywhere in your body within the last two weeks? no Patient taking anticoagulants? ___ No __x_ Yes Patient understands that they will be contacted by mill order scheduler once permission obtained from prescriber Dr Schwab to temporarily discontinue anticoagulant plavix per [facility] protocol. Patient has pacemaker/defibrillator: No Changes in usual pain pattern or pertinent recent trauma or surgery? __x_ No, patient transferred or will be contacted by mill order scheduler to make appointment for requested procedure. ___ [...] on filedocumented in this encounter Care Teams Public Health Representative Relationship Specialty Start Date End Date Jitendra Schwab MD PCP - General 06/19/10 [address] [place] [address] documented as of this encounter
--- OUTSIDE RECORDS SUMMARY | 2022-02-05 12:16 | XMS_ITS | Encounter Summary ---
:1950 Author Organization [facility] [place] [address] Care Team Providers Name Role Phone Jitendra Schwab MD Primary Care Provider Encounter Details Date Type Department Care Team Description 10/10/2014 Telephone Pain Management [place] [address] Social History Tobacco Use Types Packs/Day Years Used Date Current Every Day Smoker 0.5 Alcohol Use Standard Drinks/Week Comments No 0 (1 standard drink = 0.6 oz pure alcoho l) Sex Assigned at Date Recorded Not on file documented as of this encounter Miscellaneous Notes Telephone Encounter - Digna Bar RN - 10/10/2014 8:37 AM EDT Gianna Hermosillo :1950 Contact made with patient: I spoke to Ms. Hermosillo at 8:37 AM regarding her upcoming lumbar epidural steroid injection scheduled on 10/11/14 (date) scheduled at 0945 (time) with Dr. Keyur Vinson MD. Medication and Allergy reconciliation: 1. Changes were made in the telephone encounter per patient; marked as reviewed, and closed. 2. Patient confirmed no IVP dye allergy. 3. Have you had any steroid injections anywhere in your body within the last two weeks? no Arrival time: The patient was instructed to arrive at 0915 (30 minutes prior to procedure start time Bag Machine Tender: The patient was reminded that they need to have a retail delivery driver accompany them to her procedure who will remain onsite. Antibiotics/Skin assessment/Illness symptoms/Pain level assessment : 1. The patient confirmed that she is not taking antibiotics at this time. 2. The patient confirmed that she does not have any rashes, blisters, or skin breakdown on their body. 3. The patient confirmed that she does not have any active infections. 4. The patient confirmed that she does not have any symptoms of illness: fever, chills, cold, flu, nausea, vomiting. 5. The patient confirmed that she isstill experiencing significant pain. (Significant pain is defined as interfering with performing ADL.) Pain and Anti-anxiety Medications: 1. Nerve Block Procedure Patients: Patient was instructed NOT to take their pain medications on the day of the procedure and anti-anxiety medications are part of their daily medication regiment; they can and should continue taking that medication. 2. All Other Procedure Patients: The patient was instructed that if they take daily pain or anti-anxiety medications, they can and should continue taking on the day of the procedure. Does patient have history of any diagnosed bleeding disorders: No Anticoagulants: Yes The patient confirmed that she discontinued taking her anticoagulant Plavix on 10/03/14 (date). NPO instructions given to patient: 1. Last solid food intake until 0345 (6 hours prior to procedure). 2. Clear liquids (chacha shar, tea, black coffee, water, grape juice, apple juice, or cranberry juice) only intake until 0745 (2 hours prior to procedure). Diabetic instructions: Patient was advised to inform their PCP regarding safe fasting and the NPO requirements for their upcoming procedure and given the [facility] Nurse Triage Line . Implant: Patient has pacemaker/defibrillator: No Prior to checking in at 3D Theatre Director, please be sure to empty your bladder. Patient confirmed understanding that if they do not follow the above their instructions, their procedure is likely to be cancelled. Digna Bar RN documented in this encounter Plan of Treatment Not on filedocumented as of this encounter Visit Diagnoses Not on filedocumented in this encounter Care Teams Nutrition Educator Relationship Specialty Start Date End Date Jitendra Schwab MD PCP - General 06/19/[address] [place] [address] documented as of this encounter
--- OUTSIDE RECORDS SUMMARY | 2022-02-05 12:16 | XMS_ITS | Encounter Summary ---
:1950 Author Organization [facility] [place] [address] Care Team Providers Name Role Phone Jitendra Schwab MD Primary Care Provider Encounter Details Date Type Department Care Team Description 02/23/2016 Telephone Pain Management at [facility] Garret Mchugh, [place] [address] Social History Tobacco Use Types Packs/Day Years Used Date Current Every Day Smoker 1 Alcohol Use Standard Drinks/Week Comments No 0 (1 standard drink = 0.6 oz pure alcoho l) Sex Assigned at Date Recorded Not on file documented as of this encounter Miscellaneous Notes Telephone Encounter - Garret Mchugh LPN - 02/23/2016 4:12 PM EDT Received a call from Gianna this morning at 905am stating that she would be unable to make it to herappointment today with Dr. Davalos. She states that her ride canceled and she has no way to make it. documented in this encounter Plan of Treatment Not on filedocumented as of this encounter Visit Diagnoses Not on filedocumented in this encounter Care Teams Religious Activities Director Relationship Specialty Start Date End Date Jitendra Schwab MD PCP - General 06/19/10 [address] [place] [address] documented as of this encounter
--- OUTSIDE RECORDS SUMMARY | 2022-02-05 12:16 | XMS_ITS | Encounter Summary ---
:1950 Author Organization [facility] [place] [address] Care Team Providers Name Role Phone Jitendra Schwab MD Primary Care Provider Encounter Details Date Type Department Care Team Description 02/05/2022 Notes Only Cardiology Сергей Schultz MD [facility] [place] [address] CARDIOLOGY DEPT [phone] [place], [place] [address] (Wo rk) Social History Tobacco Use Types Packs/Day Years Used Date Current Every Day Smoker 1 Alcohol Use Standard Drinks/Week Comments No 0 (1 standard drink = 0.6 oz pure alcoho l) Sex Assigned at Date Recorded Not on file documented as of this encounter Progress Notes Сергей Schultz MD - 02/05/2022 11:48 AM EDT STEMI Alert Note Index Event Data Initial Contact Date and Time: 02/05/2022 11:30 AM Referring Provider: Kaya Ruggiero MD Date and Time of Presentation: 02/05/2022 11:00 AM Hospital to which patient presented: [facility] [place] [facility] [place] Date and Time of First Medical Contact: 02/05/2022 11:16 AM Medical History (prior to current presentation) Atrial Fibrillation/ Atrial Flutter: No Hypertension: No Dyslipidemia: No Angina: No Myocardial Infarction: No Diabetes Mellitus: No Prior Percutaneous Coronary Intervention: No Prior Coronary Artery Bypass Graft: No Cerebrovascular Disease: Yes Tobacco Use: Yes Presenting Symptoms per OSH/EMS Free Text Dyspnea and cough x multiple days Time of continuous symptom onset to ED presentation 48 hours Estimated total time from symptom onset to treatment (PCI or thrombolytic) >4 hours: No Chest Pain: Yes Shortness of breath: Yes Syncope: No Cardiac Arrest: No ECG Date and Time Initial ED EC02/05/2022 11:16 AM Date and Time First Diagnostic ECG (can be pre-hospital or ED): 02/05/2022 11:16 AM Rhythm: Sinus EKG Interpretation(choose all that apply): Inferior ST elevation and Anterior ST depressions Meets Strict STEMI ECG Criteria New ST elevation in V2-V3 of >- 2 mm in men, or >- 1.5 mm in women: No New ST elevation of >1 mm in other contiguous leads including limb leads: Yes Evidence of Q-wave infarction: Yes LBBB meeting Sgarbossa criteria for STEMI: No ST depressions with prominent R wave in V2-V3 (suspected posterior infarct): No Exam at Presentation HR: 104 SBP: 108 DBP: 85 Killip class: I (no rales) and II-III (rales-no shock) FREDY Risk Score for STEMI Age: 65-74 years (2 points) Diabetes, Hypertension or Angina: No (0 points) Systolic BP <100 mmhg: No (0 points) Heart rate >100: Yes (2 points) Killip Class II-IV (JVD or any pulmonary exam findings of CHF): Yes (2 points) Weight <67 kg (147 lbs): No (0 points) Anterior ST Elevation or LBBB: No (0 points) Time to treatment > 4 hours: Yes (1 point) Total Points and % 30 day mortality risk (choose one): 7 points = 23.4% Treatment Beta Jana (Any): None Asprin (Any): Yes Asprin Date/Time: 02/05/2022 11:20 AM Adjunctive PLT Inhibitor: None given Anti-thrombotic used: Unfractionated Heparin Contraindications to thrombolytic: Relative If Relative (Choose all that apply): History of prior CVA (except w/in 4 hours of CVA onset) or other intracranial pathology Plan Plan Detail: Plan for CXR and labs. Calling daughter as patient is DNI per outside ED. Plavix if able. STEMI Alert called: Yes Supervisor [place]ro[place] Activated by: Chief Medical Technologist Initial Disposition: Admit Supervisor Enrobing documented in this encounter Plan of Treatment Not on filedocumented as of this encounter Visit Diagnoses Not on filedocumented in this encounter Care Teams Knot Bumper Relationship Specialty Start Date End Date Jitendra Schwab MD PCP - General 06/19/10 [address] [place] [address] documented as of this encounter
--- OUTSIDE RECORDS SUMMARY | 2022-02-05 12:16 | XMS_ITS | Encounter Summary ---
:1950 Author Organization [facility] [place] [address] Care Team Providers Name Role Phone Jitendra Schwab MD Primary Care Provider Encounter Details Date Type Department Care Team Description 02/05/2022 Hospital Encounter Thread Twister [facility] Claribel Burns MD [facility] [place] [address] [place] [address] [phone] (Wo rk) Social History Tobacco Use Types Packs/Day Years Used Date Current Every Day Smoker 1 Alcohol Use Standard Drinks/Week Comments No 0 (1 standard drink = 0.6 oz pure alcoho l) Sex Assigned at Date Recorded Not on file documented as of this encounter Plan of Treatment Not on filedocumented as of this encounter Visit Diagnoses Not on filedocumented in this encounter Care Teams Inset Cutter Relationship Specialty Start Date End Date Jitendra Schwab MD PCP - General 06/19/10 [address] [place] [address] documented as of this encounter
--- OUTSIDE RECORDS SUMMARY | 2022-02-05 12:16 | XMS_ITS | Encounter Summary ---
:1950 Author Organization [facility] [place] [address] Care Team Providers Name Role Phone Jitendra Schwab MD Primary Care Provider Encounter Details Date Type Department Care Team Description 09/21/2014 Telephone Pain Management at [place] [address] Social History Tobacco Use Types Packs/Day Years Used Date Current Every Day Smoker 0.5 Alcohol Use Standard Drinks/Week Comments No 0 (1 standard drink = 0.6 oz pure alcoho l) Sex Assigned at Date Recorded Not on file documented as of this encounter Miscellaneous Notes Telephone Encounter - Halina Goncalves LPN - 09/21/2014 4:29 PM EST Fluoroscopy Procedure Request Procedure Requested: lumbar epidural steroid injection Date(s) of Last Procedure: 06/22/15 Did requested procedure relieve pain? _x__ Yes - For how long 3 months? 80 % of relief received from previous injection. Have you had any steroid injections anywhere in your body within the last two weeks? no Patient taking anticoagulants? _x__ Yes Patient understands that they will be contacted by flying instructor once permission obtained from prescriber Dr. Schwab to temporarily discontinue anticoagulant Plavix per [facility] protocol. (ONfile approval to d/c Plavix.) Patient has pacemaker/defibrillator: No Changes in usual pain pattern or pertinent recent trauma or surgery? __x_ No, patient transferred or will be contacted by flying instructor to make appointment for requested procedure. Patient's questions regarding requested procedure were answered and patient verbalized understanding. Patient knows how to contact the Pain Management Center and understands that they may do so at any time should they have further questions or concerns. Halina Goncalves LPN documented in this encounter Plan of Treatment Not on filedocumented as of this encounter Visit Diagnoses Not on filedocumented in this encounter Care Teams Oyster Shipper Relationship Specialty Start Date End Date Jitendra Schwab MD PCP - General 06/19/10 [address] [place] [address] documented as of this encounter
--- OUTSIDE RECORDS SUMMARY | 2022-02-05 12:16 | XMS_ITS | Encounter Summary ---
:1950 Author Organization [facility] [place] [address] Care Team Providers Name Role Phone Jitendra Schwab MD Primary Care Provider Encounter Details Date Type Department Care Team Description 09/30/2016 Telephone Pain Management at Candice Bryson, [place] [address] Social History Tobacco Use Types Packs/Day Years Used Date Current Every Day Smoker 1 Alcohol Use Standard Drinks/Week Comments No 0 (1 standard drink = 0.6 oz pure alcoho l) Sex Assigned at Date Recorded Not on file documented as of this encounter Miscellaneous Notes Telephone Encounter - Candice Harris RN - 09/30/2016 12:39 PM EST Gianna Hermosillo :1950 Message left: I left a message on answering machine Ms. Hermosillo at 12:40 PM regarding her upcoming Neither Lumbar Facet injection with Dr. Giovanni Davalos MD. Message included the followin. Patient instructed to arrive at 0930 AM (30 minutes prior to procedure start time) on 10/02/2016 (date of procedure) with their snaker tractor driver. 2. Following instructions left in the [...] 3. If patient NPO: No food after 0400 AM (6 hours prior to procedure start time); clear fluids only up until 0800 AM (2 hours prior to procedure start time) Candice Harris RN documented in this encounter Plan of Treatment Not on filedocumented as of this encounter Visit Diagnoses Not on filedocumented in this encounter Care Teams Production Line Solderer Relationship Specialty Start Date End Date Jitendra Schwab MD PCP - General 06/19/10 [address] [place] [address] documented as of this encounter
--- OUTSIDE RECORDS SUMMARY | 2022-02-05 12:16 | XMS_ITS | Encounter Summary ---
:1950 Author Organization [place] [address] Care Team Providers Name Role Phone Jitendra Schwab MD Primary Care Provider Encounter Details Date Type Department Care Team Description 05/05/2015 Telephone Pain Management at Vandana [place], [place] [address] Social History Tobacco Use Types Packs/Day Years Used Date Current Every Day Smoker 0.5 Alcohol Use Standard Drinks/Week Comments No 0 (1 standard drink = 0.6 oz pure alcoho l) Sex Assigned at Date Recorded Not on file documented as of this encounter Miscellaneous Notes Telephone Encounter - Vandana Harris, AUTISM TUTOR - 05/05/2015 4:59 PM EDT Gianna Hermosillo :1950 Contact made with patient: I spoke to Ms. Hermosillo at 5:00 PM regarding her upcoming Neither lumbar epidural steroid injection scheduled on 05-08-15 (date) scheduled at 2:30 (time) with Dr. Fozia Rosa MD. Medication and Allergy reconciliation: 1. Changes were made in the telephone encounter per patient; marked as reviewed, and closed. 2. Patient confirmed no IVP dye allergy. 3. Have you had any steroid injections anywhere in your body within the last two weeks? no Arrival time: The patient was instructed to arrive at 2:00 (30 minutes prior to procedure start time - 60 minutes prior for RF patients with a pacemaker) on (date of procedure). Wool Washer: The patient was reminded that they need to have a transit mixer driver accompany them to her procedure who [...] she discontinued taking her anticoagulant Plavix on 04-30-15 (date). NPO instructions given to patient: 1. Last solid food intake until (6 hours prior to procedure). 2. Clear liquids (chacha shar, tea, black coffee, water, grape juice, apple juice, or cranberry juice) only intake until (2 hours prior to procedure). Diabetic instructions: Patient was advised to inform their PCP regarding safe fasting and the NPO requirements for their upcoming procedure and given the [facility] Nurse Triage Line . Implant: Patient has pacemaker/defibrillator: No Prior to checking in at [employer] Software Developer, please be sure to empty your bladder. Patient confirmed understanding that if they do not follow the above their instructions, their procedure is likely to be cancelled. Vandana Harris LPN documented in this encounter Plan of Treatment Not on filedocumented as of this encounter Visit Diagnoses Not on filedocumented in this encounter Care Teams Lead Java J2Ee Developer Relationship Specialty Start Date End Date Jitendra Schwab MD PCP - General 06/19/10 [address] [place] [address] documented as of this encounter
--- OUTSIDE RECORDS SUMMARY | 2022-02-05 12:16 | XMS_ITS | Encounter Summary ---
:1950 Author Organization [facility] [place] [address] Care Team Providers Name Role Phone Jitendra Schwab MD Primary Care Provider Encounter Details Date Type Department Care Team Description 02/05/2022 External [place] [address] Social History Tobacco Use Types Packs/Day Years Used Date Current Every Day Smoker 1 Alcohol Use Standard Drinks/Week Comments No 0 (1 standard drink = 0.6 oz pure alcoho l) Sex Assigned at Date Recorded Not on file documented as of this encounter Plan of Treatment Not on filedocumented as of this encounter Procedures Procedure Name Priority Date/Time Associated Diagnosis Comme nts ECG SCAN Routine 02/05/2022 Results for thi s procedure are in the resu lts section. documented in this encounter Results Scan Doc: ECG (02/05/2022) Narrative This result has an attachment that is no t available. Historical Provider MEDIA MGR SCAN EXT ORDR/RSLT documented in this encounter Visit Diagnoses Not on filedocumented in this encounter Care Teams Special Forces Specialist Relationship Specialty Start Date End Date Jitendra Schwab MD PCP - General 06/19/10 [address] [place] [address] documented as of this encounter
--- OUTSIDE RECORDS SUMMARY | 2022-02-05 12:16 | XMS_ITS | Encounter Summary ---
:1950 Author Organization [facility] [place] [address] Care Team Providers Name Role Phone Jitendra Schwab MD Primary Care Provider Encounter Details Date Type Department Care Team Description 01/25/2016 Telephone Pain Management [place] [address] Social History Tobacco Use Types Packs/Day Years Used Date Current Every Day Smoker 1 Alcohol Use Standard Drinks/Week Comments No 0 (1 standard drink = 0.6 oz pure alcoho l) Sex Assigned at Date Recorded Not on file documented as of this encounter Miscellaneous Notes Telephone Encounter - Halina Goncalves LPN - 01/25/2016 8:57 AM EDT Patient called to reschedule LESI W/ IV SEDATION-NPO- LAST DOSE OF PLAVIX . Scanned document from MDto stop Plavix up to 1 year. Pt voiced she is having more pain in her back than her leg. Nurse encouraged her to advise MD when she arrives for her procedure. Pt voiced understanding and call transferred to PC personnel security specialist. documented in this encounter Plan of Treatment Not on filedocumented as of this encounter Visit Diagnoses Not on filedocumented in this encounter Care Teams Medical Claims Processor Relationship Specialty Start Date End Date Jitendra Schawb MD PCP - General 06/19/[address] [place] [address] documented as of this encounter
--- OUTSIDE RECORDS SUMMARY | 2022-02-05 12:16 | XMS_ITS | Encounter Summary ---
:1950 Author Organization [facility] [place] [address] Care Team Providers Name Role Phone Jitendra Schwab MD Primary Care Provider Reason for Visit Reason Comments Back Pain Right Leg Pain Left Leg Pain Encounter Details Date Type Department Care Team Description 05/08/2015 Procedure visit Pain Management at Karla Rosa lacement of lumbar [facility] intervertebral disc [facility] [address] [place] [facility] [id number] [phone] [facility] Social History Tobacco Use Types Packs/Day Years Used Date Current Every Day Smoker 1 Alcohol Use Standard Drinks/Week Comments No 0 (1 standard drink = 0.6 oz pure alcoho l) Sex Assigned at Date Recorded Not on file documented as of this encounter Last Filed Vital Signs Vital Sign Reading [...] Mass Index 29.45 05/08/2015 2:25 PM EDT documented in this encounter Patient Instructions Patient Halina FletcherELLA - 05/08/2015 2:48 PM EDT Pain Management Center Discharge Instructions: You were seen by Dr. Karla Rosa MD and Kiki Nolasco DO who performed lumbar epidural steroid injection. It is normal that the injection site will be sore for up to 48 hours. You may also experience mild stiffness in the joint near the injection site. [x] You may resume your normal activities: tomorrow. You may shower today. DO NOT tub bathe, use whirlpools, hot tubs or pool therapy for 2 days. Remove Band-Aid(s) later today/tomorrow. Do not drive until tomorrow. Use caution walking/climbing stairs as you may be unsteady on your feet. You may use your usual medications, including pain medications, as directed, unless otherwise instructed. You may use an ice pack as needed for the first 24 hours, on for 20 minutes then off for 20 minutes.Do not apply heat today. [x] You received Midazolam 1 mg through an intravenous line, to lessen the anxiety/pain of your procedure. DO NOT operate heavy or dangerous equipment/tools, or sign important papers today. Attempt to empty your bladder 4-6 hours after your procedure. You received the following medications: Lidocaine, Omnipaque (contrast dye) and Dexamethasone SodiumPhosphate 10 mg. During regular business hours, please phone the Pain Management Center at for appointments or with any questions or if the following or other troubling symptoms develop: 1) Prolonged dizziness or weakness (more than 1 day). 2) Localized swelling, redness or drainage at the injection site(s). 3) Temperature of 101 degrees that lasts for more than 4 hours. After 5 PM or on weekends, call and ask for Pain Clinic provider on-call. If you are unable to reach the Pain Management Center and have a complication, please call your Primary Care Provider or proceed to your local emergency department. ELLA Meade documented in this encounter Progress Notes Halina Goncalves LPN - 05/08/2015 2:27 PM EDT Pre-Procedure Screening Questions: 1. Status: No 2. Patient states they have a tractor sweeper driver to transport after procedure? Yes 3. Patient taking antibiotics at present? No 4. NPO per Pain Management Center protocol? Yes 5. Patient diabetic: No Patient routinely taking anticoagulants ? Yes Anticoagulant:Plavix Date Stopped: 04/30/15 Current INR: n/a Patient Vital Signs documented in Doc Flowsheets associated with this encounter. Patient Discharge Instructions were reviewed with patient and copy provided to patient. IV anxiolysis: Yes IV placement: ??? Location of IV Insertion: right [ x ] hand [ ] anterior forearm [ ] posterior forearm [ ] AC [ ] upper arm [ ] other: ??? IV Gauge: [ ] 24G [ x ] 22G [ ] 20G After IV insertion completed, IV was secured with occlusive transparent dressing. IV site is patent and intact. Patient is without complaint upon completion of IV insertion. ??? Started by: Dr. Stern Initiated by: ELLA Meade ??? IV Solution: LR 1000ml - rate as directed by proceduralist ??? Total Volume Intravenous Fluid infused documented in the Medication Administration Record (MAR) Site condition at IV removal: [ x ] Clear [ ] Bruised [ ] other: Administration of IV anxiolysis procedural medications documented in MAR as ordered by proceduralist documented in this encounter Procedure Notes Kiki Nolasco DO - 05/08/2015 2:27 PM EDTAssociated Order(s): EPIDURAL STEROID INJECTION Procedure(s): EPIDURAL STEROID INJECTION Pre-Procedure Diagnose(s): Displacement of lumbar intervertebral disc without myelopathy Lumbar Epidural Steroid Injection with Fluoroscopic Guidance L5-S1 Chief Complaint: Bilateral leg pain (left>Right) Gianna Hermosillo has been referred to the [facility] Management Center for Lumbar Epidural Steroid Injection. Gianna Hermosillo was greeted by the nurse who verified patients name and . Patient was then taken to the fluoroscopy suite. Ms. Hermosillo was interviewed and the medical record reviewed. There were no medical, pharmacologic, radiographic or other structural contraindications to attempting fluoroscopically guided epidural steroid injection. Risks and expected side effects as well as potential benefit of the procedure were revie wed with Ms. Hermosillo, and her voiced concerns were addressed. The printed consent form was signed andwitnessed. The risks and benefits were reviewed with the patient including but not limited to post dural puncture, headache, infection, nerve injury, allergic reaction, possible increase in symptoms over the ensuing 24 to 48 hours, paralysis. The patient appeared to understand, questions were answeredand the patient agreed to proceed. TECHNIQUE: After informed written consent was obtained, the patient was placed in the prone position. The Lumbar spine was prepped with chloraprep and draped. Sterile technique was used, vital signs (BP, pulse oximtery) were monitored, time out was done, cap, glove, mask were worn. Using fluoroscopic guidance, the L5-S1 interspace was identified. The skin and subcutaneous structures were anesthetized with lidocaine 1% to a total volume of 5 ml. An 18 g tuohy needle was advance tothe epidural space using the loss of resistance technique with air and fluoroscopic guidance. There was no blood or CSF. Lateral view was obtained. Under AP view Omnipaque 240 1 cc's was injected whilevisualized with live fluoroscopy. There was no evidence of intravascular uptake, the epidural space was delineated. The patient received Decadron 10 mg to a total volume of 1 ml after negative aspiration for blood or CSF. Radiographs were archived in the patient???s chart. OUTCOME:Outcome: The patient tolerated the procedure well and had stable vital signs. Follow up plans and appointments were discussed with Gianna Hermosillo. The patient was observed in the pain clinic and then discharged after having met discharge criteria to the care of a tractor sweeper driver. The patient received written instructions as documented in nursing records. COMMENTS: Pt stopped Plavix 10 days ago. No complications Repeat PRN Follow-up with PCP. Will look at recent MRI once we get the images. CC: JITENDRA SCHWAB MD (General) @PCPADD@ I was the attending physician supervising the fellow or resident in the above care and I was presentwith the resident for the entire procedure. KARLA ROSA MD documented in this encounter Plan of Treatment Not on filedocumented as of this encounter Procedures Procedure Name Priority Date/Time Associated Diagnosis Comme nts EPIDURAL STEROID Routine 05/08/2015 5:03 PM Displacement of shanice mbar Results for this INJECTION EDT intervertebral disc procedur e are in without myelopathy the resul ts section. documented in this encounter Results EPIDURAL STEROID INJECTION (05/08/2015 5:03 PM EDT) Narrative Karla Rosa MD - 05/08/2015 5:03 P M EDT Karla Rosa MD ? 05/08/2015 ??5:03 PM Lumbar Epidural Steroid Injection with F luoroscopic Guidance L5-S1 Chief Complaint: Bilateral leg pain (lef t>Right) Gianna Hermosillo has been referred to the [facility] Management Center for Lumbar Epidural Steroid Injection. Gianna Hermosillo was greeted by the nurse who verified patients name and . ??Patient was then taken t o the fluoroscopy suite. Ms. Hermosillo was interviewed and the medic al record reviewed. ?? There were no medical, pharmacologic, ra diographic or other structural contraindications to attempti ng fluoroscopically guided epidural steroid injection. ??Ris ks and expected side effects as well as potential benefit of the procedure were reviewed with Ms. Hermosillo, and her voiced concerns were addressed. The printed consent form was signed and witnessed. The risks and benefits were reviewed with the patient including but not limited to post dural puncture, headache, infect ion, nerve injury, allergic reaction, possible increase in symptoms over the ensuing 24 to 48 hours, paralysis. ??The patient appeared to understand, ?? questions were answered and the patient agreed to proceed. TECHNIQUE: After informed written consen t was obtained, the patient was placed in the prone position . The Lumbar spine was prepped with chloraprep and draped. ??St erile technique was used, vital signs (BP, pulse oximtery) were mo nitored, time out was done, cap, glove, mask were worn. Using fluoroscopic guidance, the ??L5-S1 ??interspace was identified. ??The skin and subcutaneous structures were anesthetized with lidocaine 1% to a tota l volume of ??5 ??ml. ?? An 18 g tuohy needle was advance to the epi dural space using the loss of resistance technique with air an d fluoroscopic guidance. ?? There was no blood or CSF. Lateral view was obtained. ??Under AP view Omnipaque 240 ??1 cc's was injected while visualized with live fluoroscopy. ?? There was no eviden ce of intravascular uptake, the epidural space was delineate d. ??The patient received Decadron 10 ?? mg ?? to a total volume of 1 ml after negativ e aspiration for blood or CSF. ??Radiographs were archived in the patient? s chart. OUTCOME:Outcome: The patient tolerated t he procedure well and had stable vital signs. ??Follow up plans an d appointments were discussed with Gianna Hermosillo. The odilia ent was observed in the pain clinic and then discharged after randall janessa met discharge criteria ??to the care of a tractor sweeper driver. ??Th e patient received written instructions as documented in nursing re cords. ?? COMMENTS: Pt stopped Plavix 10 days ago. ??No complications Repeat PRN Follow-up with PCP. Will look at recent MRI once we get the images. CC: JITENDRA SCHWAB MD (General) @PCPADD@ I was the attending physician supervisin g the fellow or resident in the above care and I was present with the resident for the entire procedure. KARLA ROSA MD Karla Rosa MD NEUROLOGY ORDERABLES documented in this encounter Visit Diagnoses Diagnosis Displacement of lumbar intervertebral di sc without myelopathy documented in this encounter Administered Medications Inactive Administered Medications - up to 3 most recent administrations Medication Order MAR Action Action Date Dose Rate Site dexamethasone(PF) (DECADRON) 10 Given 05/08/2015 2:45 PM EDT 10 mg mg/mL injection 10 mg 10 mg, Epidural, ONCE, 1 dose, On Fri05/08/15 at 1445, Routine iohexol (OMNIPAQUE) 240 mg/mL solution 1 mL Given 05/08/2015 2:45 PM EDT 1 mL 1 mL, Other, ONCE, 1 dose, On Fri05/08/15 at 1445, 49 ml wasted, Routine midazolam (PF) (VERSED) 1 mg/mL injection 0.5 Given 05/08/20 15 2:58 PM EDT 1 mg mg 0.5 mg, Intravenous, ONCE PRN, 1 dose, Starting on Fri05/08/15 at 1428, Until Fri05/08/15 at 1458, Anxiety, Routine documented in this encounter Care Teams Box Worker Relationship Specialty Start Date End Date Jitendra Schwab MD PCP - General 06/19/10 [address] [place] [address] documented as of this encounter
--- OUTSIDE RECORDS SUMMARY | 2022-02-05 12:16 | XMS_ITS | Encounter Summary ---
:1950 Author Organization [facility] [place] [address] Care Team Providers Name Role Phone Jitendra Schwab MD Primary Care Provider Encounter Details Date Type Department Care Team Description 11/02/2015 Telephone Pain Management at Yareli Nice, [place] [address] Social History Tobacco Use Types Packs/Day Years Used Date Current Every Day Smoker 1 Alcohol Use Standard Drinks/Week Comments No 0 (1 standard drink = 0.6 oz pure alcoho l) Sex Assigned at Date Recorded Not on file documented as of this encounter Miscellaneous Notes Telephone Encounter - Yareli Payan RN - 11/02/2015 3:41 PM EDT [facility] Temporary Anticoagulant Hold Documentation Patient: Gianna Hermosillo [id number] Schwab to temporarily stop Plavix for 7 days prior to requested lumbar epidural steroid injection injection/procedure. See signed permission received from prescriber scanned into electronic record. PT/INR ordered: no Yareli Payan RN documented in this encounter Plan of Treatment Not on filedocumented as of this encounter Visit Diagnoses Not on filedocumented in this encounter Care Teams Postal Service Sectional Center Manager Relationship Specialty Start Date End Date Jitendra Schwab MD PCP - General 06/19/10 [address] [place] [address] (work) documented as of this encounter
--- OUTSIDE RECORDS SUMMARY | 2022-02-05 12:16 | XMS_ITS | Encounter Summary ---
:1950 Author Organization [facility] [place] [address] Care Team Providers Name Role Phone Jitendra Schwab MD Primary Care Provider Encounter Details Date Type Department Care Team Description 06/02[facility]2014 [facility] [place] [address] Social History Tobacco Use Types Packs/Day Years Used Date Current Every Day Smoker 0.5 Alcohol Use Standard Drinks/Week Comments No 0 (1 standard drink = 0.6 oz pure alcoho l) Sex Assigned at Date Recorded Not on file documented as of this encounter Miscellaneous Notes Telephone Encounter - Mansi Muñoz LPN - 06/02/2014 10:07 AM EST [facility] Temporary Anticoagulant Hold Documentation Patient: Gianna Hermosillo [id number] Schwab to temporarily stop Plavix for 7 days prior to requested lumbar epidural steroid injection injection/procedure. See signed permission received from prescriber scanned into electronic record. PT/INR ordered: no Mansi Muñoz LPN documented in this encounter Plan of Treatment Not on filedocumented as of this encounter Visit Diagnoses Not on filedocumented in this encounter Care Teams Manager Payer Relationship Specialty Start Date End Date Jitendra Schwab MD PCP - General 06/19/10 [address] [place] [address] documented as of this encounter
--- OUTSIDE RECORDS SUMMARY | 2022-02-05 12:16 | XMS_ITS | Encounter Summary ---
:1950 [place] [address] Care Team Providers Name Role Phone Jitendra Schwab MD Primary Care Provider Reason for Visit Reason Onset Date Comments Pre Procedure Call 12/05/2014 Encounter Details Date Type Department Care Team Description 12/05/2014 Telephone Pain Management at Mansi Muñoz LPN [place] [address] Social History Tobacco Use Types Packs/Day Years Used Date Current Every Day Smoker 0.5 Alcohol Use Standard Drinks/Week Comments No 0 (1 standard drink = 0.6 oz pure alcoho l) Sex Assigned at Date Recorded Not on file documented as of this encounter Miscellaneous Notes Telephone Encounter - Mansi Muñoz LPN - 12/05/2014 8:46 AM EDT Gianna Hermosillo :1950 Message left: I left a message on answering machine Ms. Hermosillo at 8:46 AM regarding her upcoming lumbar epidural steroid injection with Dr. Fozia Rosa MD. Message included the followin. Patient instructed to arrive at 1015 (30 minutes prior to procedure start time) on 12/06/14 (date of procedure) with their bung driver. 2. Following instructions left in the [...] 3. If patient NPO: No food after 0445 (6 hours prior to procedure start time); clear fluids only up until 0845 (2 hours prior to procedure start time) Mansi Muñoz LPN documented in this encounter Plan of Treatment Not on filedocumented as of this encounter Visit Diagnoses Not on filedocumented in this encounter Care Teams Paint Prepper Relationship Specialty Start Date End Date Jitendra Schwab MD PCP - General 06/19/[address] [place] [address] documented as of this encounter
--- OUTSIDE RECORDS SUMMARY | 2022-02-05 12:16 | XMS_ITS | Encounter Summary ---
:1950 Author Organization [facility] [place] [address] Care Team Providers Name Role Phone Jitendra Schwab MD Primary Care Provider Encounter Details Date Type Department Care Team Description 11/02/2015 Telephone Pain Management [place] [address] Social History Tobacco Use Types Packs/Day Years Used Date Current Every Day Smoker 1 Alcohol Use Standard Drinks/Week Comments No 0 (1 standard drink = 0.6 oz pure alcoho l) Sex Assigned at Date Recorded Not on file documented as of this encounter Miscellaneous Notes Telephone Encounter - Yareli Payan RN - 11/02/2015 11:25 AM EDT [facility] Temporary Anticoagulant Hold Initial Request Patient: Gianna Hermosillo [phone] Request for the above named patient to temporarily stop plavix for 7 days prior to requested lumbar epidural steroid injection injection/procedure has been faxed to: Dr. Schwab office. Fax number: Fax confirmation that request received at the above named doctor's office: 11/02/2015 (date stamp on fax confirmation) [phone] (time stamp on fax confirmation) Paper documentation in [facility] Nurse Triage Desk. Yareli Payan RN documented in this encounter Plan of Treatment Not on filedocumented as of this encounter Visit Diagnoses Not on filedocumented in this encounter Care Teams Ticket Collector Relationship Specialty Start Date End Date Jitendra Schwab MD PCP - General 06/19/10 [address] [place] [address] documented as of this encounter
--- OUTSIDE RECORDS SUMMARY | 2022-02-05 12:16 | XMS_ITS | Encounter Summary ---
:1950 Author Organization [facility] [place] [address] Care Team Providers Name Role Phone Jitendra Schwab MD Primary Care Provider Encounter Details Date Type Department Care Team Description 08/27/2016 Telephone Pain Management at Candice Bryson, [place] [address] Social History Tobacco Use Types Packs/Day Years Used Date Current Every Day Smoker 1 Alcohol Use Standard Drinks/Week Comments No 0 (1 standard drink = 0.6 oz pure alcoho l) Sex Assigned at Date Recorded Not on file documented as of this encounter Miscellaneous Notes Telephone Encounter - Candice Harris RN - 08/27/2016 4:45 PM EST Gianna Hermosillo :1950 Message left: I left a message on answering machine Ms. Hermosillo at 4:45 PM regarding his upcoming Neither lumbar epidural steroid injection with Dr. Giovanni Davalos MD. Message included the followin. Patient instructed to arrive at 1030 AM (30 minutes prior to procedure start time) on 08/28/16 (date of procedure) with their local driver. 2. Following instructions left in the [...] 3. If patient NPO: No food after 0500 AM (6 hours prior to procedure start time); clear fluids only up until 0900 AM (2 hours prior to procedure start time) Candice Harris RN documented in this encounter Plan of Treatment Not on filedocumented as of this encounter Visit Diagnoses Not on filedocumented in this encounter Care Teams Die Storage Clerk Relationship Specialty Start Date End Date Jitendra Schwab MD PCP - General 06/19/10 [address] [place] [address] documented as of this encounter
--- OUTSIDE RECORDS SUMMARY | 2022-02-05 12:17 | XMS_ITS | Encounter Summary ---
:1950 Author Organization [facility] [place] [address] Care Team Providers Name Role Phone Jitendra Schwab MD Primary Care Provider Encounter Details Date Type Department Care Team Description 12/06/2011 Procedure visit Pain Management at Jc Villarreal L umbar radiculopathy; [facility] [place] Lumbosacral spondylosis without myelopat [facility] [address] [place] [facility] [id number] [place] [address] [phone] Social History Tobacco Use Types Packs/Day Years Used Date Current Every Day Smoker 0.5 Sex Assigned at Date Recorded Not on file documented as of this encounter Last Filed Vital Signs Vital Sign Reading Time Taken Comments Blood Pressure 171/88 12/06/2011 8:40 AM EDT Pulse 90 12/06/2011 8:40 AM EDT Temperature - - Respiratory Rate - - Oxygen Saturation 97% 12/06/2011 8:40 AM EDT Inhaled Oxygen Concentration - - Weight - - Height - - Body Mass Index - - documented in this encounter Patient Instructions Patient InstructionsPosRoselia duffy RN - 12/06/2011 8:43 AM EDT [facility] Discharge Instructions: You were seen by Dr. Jc Villarreal MD who performed lumbar epidural steroid injection. [x] You may resume your normal activities: [...] your procedure. You received the following medications: Depo-Medrol 120 mg, Lidocaine and Omnipaque (contrast dye). During regular business hours, please phone the [...] or proceed to your local emergency department. Special instructions: Roselia Reza RN documented in this encounter Progress Notes Roselia Reza RN - 12/06/2011 10:03 AM EDT IV anxiolysis: Yes IV placement: Location of IV Insertion: [ x ] Right [ ] Left [ x ] hand [ ] anterior forearm [ ] posterior forearm [ ] AC [ ] upper arm [ ] other: IV Gauge: [ ] 24G [ x ] 22G [ ] 20G After IV insertion completed, IV was secured with occlusive transparent dressing. IV site is patent and intact. Patient is without complaint upon completion of IV insertion. Started by: Roselia Reza RNInitiated by: Roselia Postler RN IV Solution: LR 1000ml - rate as directed by proceduralist Total Volume Intravenous Fluid infused documented in the Medication Administration Record (MAR) Site condition at IV removal: [ x ] Clear [ ] Bruised [ ] other: Administration of IV anxiolysis procedural medications documented in MAR as ordered by proceduralist Roselia Reza RN - 12/06/2011 8:33 AM EDT Pre-Procedure Screening Questions: 1. Status: No 2. 3. Patient states they have a fork truck driver to transport after procedure? Yes 4. Patient taking antibiotics at present? No 5. NPO per Pain Management Center protocol? Yes 6. 7. Patient diabetic: No __ borderline (not treated with medications) __ managed with oral medications __ managed with injected medications 8. Patient routinely taking anticoagulants ? Yes Date stopped -7 days ago Current INR -N/A Patient Vital Signs documented in Doc Flowsheets associated with this encounter. Patient Discharge Instructions were reviewed with patient and copy provided to patient. documented in this encounter Procedure Notes Jc Villarreal MD - 12/06/2011 8:52 AM EDTAssociated Order(s): EPIDURAL STEROID INJECTION Procedure(s): EPIDURAL STEROID INJECTION Pre-Procedure Diagnose(s): Lumbar radiculopathy; Lumbosacral spondylosis without myelopathy Lumbar Epidural Steroid Injection Gianna Hermosillo has been referred to the [facility] Center for epidural steroid injection by Zaheerrubio Katz Efrain Hermosillo was greeted by the nurse who verified patients name and . Patient was then taken to the fluoroscopy suite. COMMENTS returns for repeat lesi having three a year Gianna Hermosillo was interviewed and the medical record reviewed. There were no medical, pharmacologic, radiographic or other structural contraindications to attempting fluoroscopically guided epidural steroid injection. Risks and expected side effects as well as potential benefit of the procedure werereviewed with Gianna Hermosillo, and her voiced concerns addressed. The printed consent form was signed and witnessed. Standard time-out procedure was performed. Gianna Hermosillo was placed in the prone position on the fluoroscopy table and automated blood pressure cuff and pulse oximeter applied. The skin entry point for entering the epidural space by a left interlaminar approach at L5-S1 was identified under fluoroscopy and marked. Following thorough Chlorhexidine preparation of the skin and draping and 1% lidocaine infiltration of the skin entry point and subcutaneous tissues, an 18 gauge Tuohy needle was placed under fluoroscopic guidance and with loss of resistance technique into the epidural space. Upon needle placement andloss of resistance there were no paresthesiae or return of blood or CSF through the needle. 0.5 cc of Omnipaque 240 were injected with clear epidural spread. 80 mg of Depomedrol followed by 1ml sterilenormal saline were injected through the needle. There was not any unusual discomfort expressed by Gianna Hermosillo. Gianna Hermosillo 's vital signs were stable throughout the procedure and were as recorded in nursing records. . Follow up plans and appointments were discussed with Gianna Hermosillo. Post procedure instruction wasgiven as documented in nursing records and she was discharged in the care of an identified fork truck driver. COMMENTS: repeat documented in this encounter Miscellaneous Notes Miscellaneous - Edwin Bi Specialist - 12/10/2011 8:26 PM EDT documented in this encounter Plan of Treatment Not on filedocumented as of this encounter Procedures Procedure Name Priority Date/Time Associated Diagnosis Comme nts EPIDURAL STEROID Routine 12/06/2011 9:06 AM Lumbar radic ulopathy Results for this INJECTION EDT Lumbosacral procedure are i n spondylosis without the resu lts myelopathy section. documented in this encounter Results EPIDURAL STEROID INJECTION (12/06/2011 9:06 AM EDT) Narrative Jc Villarreal MD - 12/06/2011 9:06 A M EDT Lumbar Epidural Steroid Injection Gianna Hermosillo has been referred to the [facility] for epidural steroid injection by Zaheer ?? Gianna Hermosillo was greeted by the nurse who verified patients name and . ??Patient was then taken to the flu oroscopy suite. COMMENTS returns for repeat lesi having three a year Gianna Hermosillo was interviewed and the medical record reviewed. ??There were no medical, pharmacologic, radiogra phic or other structural contraindications to attempting fluorosc opically guided epidural steroid injection. ??Risks and expected side eff ects as well as potential benefit of the procedure were reviewed with Kavita Hermosillo, and her voiced concerns addressed. ??The printed consen t form was signed and witnessed. ?? Standard time-out procedure was performe d. Gianna Hermosillo was placed in the prone position on the fluoroscopy table and automated blood pressure cuff and pu lse oximeter applied. ??The skin entry point for entering the epidural sp aly by a left interlaminar approach at L5-S1 was identified under f luoroscopy and marked. Following thorough Chlorhexidine prepar ation of the skin and draping and 1% lidocaine infiltration of the skin en try point and subcutaneous tissues, an 18 gauge Tuohy needle was pl aced under fluoroscopic guidance and with loss of resistance technique in to the epidural space. ??Upon needle placement and loss of resistance there were no paresthesiae or return of blood or CSF through the needl e. ??0.5 cc of Omnipaque 240 were injected with clear epidural spread. ??8 0 mg of Depomedrol followed by 1ml sterile normal saline were injected thro ugh the needle. There was not any unusual discomfort expressed by Gianna Hermosillo. Gianna Hermosillo 's vital signs were stab le throughout the procedure and were as recorded in nursing records. ??. Follow up plans and appointments were di scussed with Gianna Hermosillo. ?? Post procedure instruction was given as documented in nursing records and she was discharged in the care of an roxie ntified fork truck driver. ??COMMENTS: repeat Procedure Note Jc Villarreal MD - 12/06/2011 8:52 A M EDT Lumbar Epidural Steroid Injection Gianna Hermosillo has been referred to the [facility] for epidural steroid injection by Zaheer Gianna Hermosillo was greeted by the nurse who verified patients name and . Patient was then taken to the fluoroscopy suite. COMMENTS returns for repeat lesi having three a year Gianna Hermosillo was interviewed and the medical record reviewed. There were no medical, pharmacologic, radiographic or other structural contraindications to attempting fluoroscopically guided epidural steroid injection. Risks and expected side effec ts as well as potential benefit of the procedure were reviewed with Gianna Hermosillo, and her voiced concerns addressed. The printed consent form was signed and witnessed. Standard time-out procedure was performe d. Gianna Hermosillo was placed in the prone position on the fluoroscopy table and automated blood pressure cuff and pulse oximeter applied. The skin entry point for entering the epidural space by a left interlaminar approach at L5-S1 was identified under f luoroscopy and marked. Following thorough Chlorhexidine prepar ation of the skin and draping and 1% lidocaine infiltration of the skin entry point and subcutaneous tissues, an 18 gauge Tuohy needle was placed under fluoroscopic guidance and with loss of resistance technique in to the epidural space. Upon needle placement and loss of resistance there were no paresthesiae or return of blood or CSF through the needle. 0.5 cc of Omnipaque 240 were injected with clear epidural spread. 80 mg of Depomedrol followed by 1ml sterile normal saline were injected through the needle. There was not any unusual discomfort expressed by Gianna Hermosillo. Gianna Hermosillo 's vital signs were stab le throughout the procedure and were as recorded in nursing records. . Follow up plans and appointments were di scussed with Gianna Hermosillo. Post procedure instruction was given as documented in nursing records and she was discharged in the care of an identified fork truck driver. COMMENTS: repeat Jc Villarreal MD NEUROLOGY ORDERABLES documented in this encounter Visit Diagnoses Diagnosis Lumbar radiculopathy Thoracic or lumbosacral neuritis or radi culitis, unspecified Lumbosacral spondylosis without myelopat hy documented in this encounter Administered Medications Inactive Administered Medications - up to 3 most recent administrations Medication Order MAR Action Action Date Dose Rate Site iohexol (OMNIPAQUE) injection 1 mL Given 12/06/2011 8:30 AM EDT 1 mL 1 mL, Other, ONCE, 1 dose, On Fri12/06/11 at 0830, 49 ml wasted, Routine methylPREDNISolone acetate (depo-MEDROL) Given 12/06/2011 8:30 A M EDT 80 mg injection 80 mg 80 mg, Epidural, ONCE, 1 dose, On Fri12/06/11 at 0830, Routine midazolam (VERSED) injection 1 mg Given 12/06/2011 8:30 AM EDT 1 mg 1 mg, Intravenous, ONCE, 1 dose, On Fri12/06/11 at 0830, Routine documented in this encounter Care Teams Core Paster Relationship Specialty Start Date End Date Jitendra Schwab MD PCP - General 06/19/10 [address] [place] [address] documented as of this encounter
--- OUTSIDE RECORDS SUMMARY | 2022-02-05 12:17 | XMS_ITS | Encounter Summary ---
:1950 Author Organization [facility] [place] [address] Care Team Providers Name Role Phone Jitendra Schwab MD Primary Care Provider Encounter Details Date Type Department Care Team Description 01/06/2013 External Results XRay at [facility] [place], Scanning [address] [place] [phone] Social History Tobacco Use Types Packs/Day Years Used Date Current Every Day Smoker 0.5 Alcohol Use Standard Drinks/Week Comments No 0 (1 standard drink = 0.6 oz pure alcoho l) Sex Assigned at Date Recorded Not on file documented as of this encounter Plan of Treatment Not on filedocumented as of this encounter Procedures Procedure Name Priority Date/Time Associated Diagnosis Comme nts MRI/MRA SCAN Routine 09/21/2009 MRI/MRA SCAN Routine 07/10/2006 CT SCAN (SCAN) Routine 03/28/2006 ULTRASOUND SCAN (SCAN) Routine 09/20/2005 MRI/MRA SCAN Routine 10/11/2004 documented in this encounter Results Scan Doc: MRI/MRA (09/21/2009) Anatomical Region Laterality Modality Other Narrative This result has an attachment that is no t available. Scanning Provider MEDIA MGR SCAN EXT ORDR/RSLT Scan Doc: MRI/MRA (07/10/2006) Anatomical Region Laterality Modality Other Narrative This result has an attachment that is no t available. Scanning Provider MEDIA MGR SCAN EXT ORDR/RSLT Scan Doc: CT Scan (03/28/2006) Anatomical Region Laterality Modality Other Narrative This result has an attachment that is no t available. Scanning Provider MEDIA MGR SCAN EXT ORDR/RSLT Scan Doc: Ultrasound (09/20/2005) Anatomical Region Laterality Modality Other Narrative This result has an attachment that is no t available. Scanning Provider MEDIA MGR SCAN EXT ORDR/RSLT Scan Doc: MRI/MRA (10/11/2004) Anatomical Region Laterality Modality Other Narrative This result has an attachment that is no t available. Scanning Provider MEDIA MGR SCAN EXT ORDR/RSLT documented in this encounter Visit Diagnoses Not on filedocumented in this encounter Care Teams Label Machine Operator Relationship Specialty Start Date End Date Jitendra Schwab MD PCP - General 06/19/10 [address] [place] [address] documented as of this encounter
--- OUTSIDE RECORDS SUMMARY | 2022-02-05 12:17 | XMS_ITS | Encounter Summary ---
:1950 [place] [address] Care Team Providers Name Role Phone Jitendra Schwab MD Primary Care Provider Reason for Visit Reason Onset Date Comments Other 09/01/2012 Encounter Details Date Type Department Care Team Description 09/01/2012 Telephone Ophthalmology at [facility] Pilar Watters, ANNIE [facility] [place] [address] [place] [address] OPHTHALMOLOGY DEPT. [phone] [place], [place] [address] (Wo rk) Social History Tobacco Use Types Packs/Day Years Used Date Current Every Day Smoker 0.5 Alcohol Use Standard Drinks/Week Comments No 0 (1 standard drink = 0.6 oz pure alcoho l) Sex Assigned at Date Recorded Not on file documented as of this encounter Miscellaneous Notes Telephone Encounter - Vandana Chong - 09/01/2012 9:29 AM EST Gianna Hermosillo is a 62 y.o. female Yajaira called from the [facility] [facility] to let us know that she has tried unsuccessfully to reach patient as requested by Dr Gannon, so she sent information to the patient. She wanted Dr gannon to know this. documented in this encounter Plan of Treatment Not on filedocumented as of this encounter Visit Diagnoses Not on filedocumented in this encounter Care Teams Bingo Cashier Relationship Specialty Start Date End Date Jitendra Schwab MD PCP - General 06/19/10 [address] [place] [address] documented as of this encounter
--- OUTSIDE RECORDS SUMMARY | 2022-02-05 12:17 | XMS_ITS | Encounter Summary ---
:1950 Author Organization [place] [address] Care Team Providers Name Role Phone Jitendra Schwab MD Primary Care Provider Encounter Details Date Type Department Care Team Description 06/14/2013 Telephone Pain Management at [facility] Vandana Mcfadden, [place] [address] Social History Tobacco Use Types Packs/Day Years Used Date Current Every Day Smoker 0.5 Alcohol Use Standard Drinks/Week Comments No 0 (1 standard drink = 0.6 oz pure alcoho l) Sex Assigned at Date Recorded Not on file documented as of this encounter Miscellaneous Notes Telephone Encounter - Vandana Mcfadden, RN - 06/14/2013 4:00 PM EST Fluoroscopy Procedure Request Procedure Requested: lumbar epidural steroid injection. Date(s) of Last Procedure: 05/07/13 Did requested procedure relieve pain? _x Yes - For how long 6 weeks ___ No Patient taking anticoagulants? ___ No __x_ Yes Patient has one year clearance from Dr. Schwab for her Plavix until 04/08/14 Patient has pacemaker/defibrillator: No Changes in usual pain pattern or pertinent recent trauma or surgery? _x__ No, patient is sitting at desk with closet organizer to make appointment for requested procedure. ___ Yes, patient referred for re-evaluation by referring provider. Patient's questions regarding requested procedure were answered and patient verbalized understanding. Patient knows how to contact the Pain Management Center and understands that they may do so at any time should they have further questions or concerns. Vandana Mcfadden RN documented in this encounter Plan of Treatment Not on filedocumented as of this encounter Visit Diagnoses Not on filedocumented in this encounter Care Teams Press Smith Helper Relationship Specialty Start Date End Date Jitendra Schwab MD PCP - General 06/19/[address] [place] [address] documented as of this encounter
--- OUTSIDE RECORDS SUMMARY | 2022-02-05 12:17 | XMS_ITS | Encounter Summary ---
:1950 Author Organization [facility] [place] [address] Care Team Providers Name Role Phone Jitendra Schwab MD Primary Care Provider Encounter Details Date Type Department Care Team Description 06/22/2013 Orders Only Pain Management at [facility] Keyur Vinson, [facility] [place] [address] [facility] [phone] PA[facility] [place] [id number] (Wo rk) Social History Tobacco Use Types Packs/Day Years Used Date Current Every Day Smoker 0.5 Alcohol Use Standard Drinks/Week Comments No 0 (1 standard drink = 0.6 oz pure alcoho l) Sex Assigned at Date Recorded Not on file documented as of this encounter Plan of Treatment Pending Results Name Type Priority Associated Diagnoses Date/Ti me Film Library-storage Imaging Routine 013 1:00 PM EST only pain clinic C-arm Scheduled Orders Name Type Priority Associated Diagnoses Order S chedule Film Library-storage Imaging Routine Once [facility] (for Radiant use) only pain clinic for 1 Occur rences starting C-arm 06/24/2013 unti l 06/24/2013 documented as of this encounter Visit Diagnoses Not on filedocumented in this encounter Care Teams Department [employer] Relationship Specialty Start Date End Date Jitendra Schwab MD PCP - General 06/19/10 [address] [place] [address] documented as of this encounter
--- OUTSIDE RECORDS SUMMARY | 2022-02-05 12:17 | XMS_ITS | Encounter Summary ---
:1950 Author Organization [facility] [place] [address] Care Team Providers Name Role Phone Jitendra Schwab MD Primary Care Provider Encounter Details Date Type Department Care Team Description 08/07/2012 Abstract Ophthalmology at [facility] Tricia Alejandre MD [facility] [place] [address] OPHTHALMOLOGY DEPT. [phone] [place] [address] (Wo rk) Social History Tobacco Use Types [...] on filedocumented in this encounter Care Teams Oracle Architect Relationship Specialty Start Date End Date Jitendra Schwab MD PCP - General 06/19/10 [address] [place] [address] documented as of this encounter
--- OUTSIDE RECORDS SUMMARY | 2022-02-05 12:17 | XMS_ITS | Encounter Summary ---
:1950 Author Organization [facility] [place] [address] Care Team Providers Name Role Phone Jitendra Schwab MD Primary Care Provider Encounter Details Date Type Department Care Team Description 11/22/2011 Notes Only Pain Management at Vera Gordon, [place] [address] Social History Tobacco Use Types Packs/Day Years Used Date Current Every Day Smoker 0.5 Sex Assigned at Date Recorded Not on file documented as of this encounter Progress Notes Vera Oliver RN - 11/22/2011 8:27 AM EDT Pain Management [facility] Temporary Anticoagulant Hold Documentation Patient: Gianna Hermosillo [id number] Permission received 11/21/11 from fax dated 07/01/[address] Schwab to temporarily stop Plavix for 7 days prior to requested injection/procedures up to 1 year. See signed permission received from prescriber scanned into electronic record. PT/INR ordered: n/a Vera Oliver RN BSN documented in this encounter Plan of Treatment Not on filedocumented as of this encounter Visit Diagnoses Not on filedocumented in this encounter Care Teams Health Information Coder Relationship Specialty Start Date End Date Jitendra Schwab MD PCP - General 06/19/10 [address] [place] [address] documented as of this encounter
--- OUTSIDE RECORDS SUMMARY | 2022-02-05 12:17 | XMS_ITS | Encounter Summary ---
:1950 Author Organization [facility] [place] [address] Care Team Providers Name Role Phone Jitendra Schwab MD Primary Care Provider Encounter Details Date Type Department Care Team Description 05/07/2013 Orders Only Pain Management at [facility] Keyur Vinson, [facility] [place] [address] [facility] [phone] PAIN CLINIC [place] [address] (Wo rk) Social History Tobacco Use Types [...] Name Priority Date/Time Associated Diagnosis Comme nts FILM LIBRARY Routine 05/07/2013 9:30 AM Results f or this STORAGE ONLY PAIN EDT procedure are in CLINIC C ARM the results section. documented in this encounter Results Film Library-storage only pain clinic C-arm (05/07/2013 9:30 AM EDT) Specimen (Source) Anatomical Collection Method Collection Time Re ceived Time Location / / Volume Laterality 05/07/2013 9:30 AM EDT Narrative RAD - 03/23/2014 4:47 PM EDT This is a non-reportable exam. Procedure Note Gaurav Puckett - 03/23/2014Formatti ng of this note might be different from the original. This is a non-reportable exam. Keyur Vinson MD IMG FILM LIBRARY ORDERABLES Performing Organization Address City/State/ZIP Code [facility] e Number DH RAD RAD [address] [facility] [place] [address] documented in this encounter Visit Diagnoses Not on filedocumented in this encounter Care Teams Machine Package Sealer Relationship Specialty Start Date End Date Jitendra Schwab MD PCP - General 06/19/10 [address] [place] [address] documented as of this encounter
--- OUTSIDE RECORDS SUMMARY | 2022-02-05 12:17 | XMS_ITS | Encounter Summary ---
:1950 Author Organization [facility] [place] [address] Care Team Providers Name Role Phone Jitendra Schwab MD Primary Care Provider Encounter Details Date Type Department Care Team Description 12/29/2013 Telephone Pain Management at Almaz Doe, [place] [address] Social History Tobacco Use Types Packs/Day Years Used Date Current Every Day Smoker 0.5 Alcohol Use Standard Drinks/Week Comments No 0 (1 standard drink = 0.6 oz pure alcoho l) Sex Assigned at Date Recorded Not on file documented as of this encounter Miscellaneous Notes Telephone Encounter - Almaz Mendoza, RN - 12/29/2013 7:31 AM EDT Pt called to cancel appointment for [address] Vinson. documented in this encounter Plan of Treatment Not on filedocumented as of this encounter Visit Diagnoses Not on filedocumented in this encounter Care Teams Food Service Relationship Specialty Start Date End Date Jitendra Schwab MD PCP - General 06/19/10 [address] [place] [address] documented as of this encounter
--- OUTSIDE RECORDS SUMMARY | 2022-02-05 12:17 | XMS_ITS | Encounter Summary ---
:1950 Author Organization [facility] [place] [address] Care Team Providers Name Role Phone Jitendra Schwab MD Primary Care Provider Reason for Visit Reason Comments Back Pain Encounter Details Date Type Department Care Team Description 05/07/2013 Procedure visit Pain Management at [facility], Lumbar radiculopathy [facility] Keyur Francois MD (Primary Dx) [facility] [address], [place] [facility] [id number] [place] [address] Social History Tobacco Use Types Packs/Day Years Used Date Current Every Day Smoker 0.5 Alcohol Use Standard Drinks/Week Comments No 0 (1 standard drink = 0.6 oz pure alcoho l) Sex Assigned at Date Recorded Not on file documented as of this encounter Last Filed Vital Signs Vital Sign Reading Time Taken Comments Blood Pressure 158/84 05/07/2013 9:54 AM EDT Pulse 88 05/07/2013 9:54 AM EDT Temperature - - Respiratory Rate 20 05/07/2013 9:54 AM EDT Oxygen Saturation 97% 05/07/2013 9:54 AM EDT Inhaled Oxygen Concentration - - Weight 73.5 kg (162 lb) 05/07/2013 9:30 AM EDT Height 166.4 cm (5' 5.5) 05/07/2013 9:30 AM EDT Body Mass Index 26.55 05/07/2013 9:30 AM EDT documented in this encounter Patient Instructions Patient InstructionsMansi Muñoz, ELLA - 05/07/2013 9:32 AM EDT Pain Management Center Discharge Instructions: You were seen by Dr. Keyur Vinson MD who performed lumbar epidural steroid injection. [...] procedure. You received the following medications: Depo-Medrol 40 mg, Lidocaine and Omnipaque (contrast dye). During [...] or proceed to your local emergency department. Mansi Muñoz LPN documented in this encounter Progress Notes Keyur Vinson MD - 05/07/2013 9:57 AM EDT LUMBAR SACRAL EPIDURAL STERIOID INJECTION PROCEDURE NOTE Chief Complaint:Back and leg pain left greater than right. Off plavix for 8 days. Gianna Hermosillo has been referred to the Pain Management Center for lumbar epidural steroid injection. Gianna Hermosillo was greeted by the nurse who verified patients name and . Patient was then taken to the fluoroscopy suite. Gianna Hermosillo was interviewed and the medical record reviewed. There were no medical, pharmacologic, radiographic, or other structural contraindications to attempting fluoroscopically guided L5-S1 injection. Risks and expected side effects as well as potential benefits of the procedure were reviewedwith Gianna Hermosillo and her voiced concerns addressed. The patient consent form was signed and witnessed. Gianna Hermosillo was placed in the prone position on the fluoroscopy table and automated blood pressure cuff and pulse oximeter applied. The skin entry point for entering/approaching the epidural space by a left L5-S1 and marked. Following thorough Chlorhexidine preparation of the skin and draping and 1% lidocaine infiltration of the skin entry point and subcutaneous tissues, a 18 gauge epidural needle was placed under fluoroscopic guidance and with loss of resistance technique into the epidural space. Needle tip placement and depth were aided and confirmed by fluoroscopy. There was no paresthesia or return of blood or CSF through the needle. 1 cc's of Omnipaque 240 were injected with clear epidural spread confirmed with fluoroscopy. 120 mg Depomedrol followed by 1 ml sterile normal saline was injected. There was not any unusual discomfort expressed by Gianna Hermosillo. Gianna Zamudio vital signs were stable throughout the procedure and were as recorded in nursing records. Intravenous drugs for anxiolysis if given are documented in the MAR. Follow up plans and appointments were discussed with Gianna Hermosillo. Post procedure instruction wasgiven as documented in nursing records and having met discharge criteria [facility] [place]. COMMENTS: Can repeat prn.. Mansi Muñoz LPN - 05/07/2013 9:31 AM EDT Pre-Procedure Screening Questions: 1. Status: No 2. 3. Patient states they have a stock driver to transport after procedure? Yes 4. Patient taking antibiotics at present? No 5. NPO per Pain Management Center protocol? Yes 6. 7. Patient diabetic: No __ borderline (not treated with medications) __ managed with oral medications __ managed with injected medications 8. Patient routinely taking anticoagulants ? Yes Plavix Date stopped 04/29/13 Current INR Patient Vital Signs documented in Doc Flowsheets associated with this encounter. Patient Discharge Instructions were reviewed with patient and copy provided to patient. IV anxiolysis: Yes IV placement: Location of IV Insertion: [x ] Right [ ] Left [ x ] hand [ ] anterior forearm [ ] posterior forearm [ ] AC [ ] upper arm [ ] other: IV Gauge: [x ] 24G [ ] 22G [ ] 20G After IV insertion completed, IV was secured with occlusive transparent dressing. IV site is patent and intact. Patient is without complaint upon completion of IV insertion. Started by: Shamar Muñoz LPN Initiated by: Mansi Muñoz LPN IV Solution: LR 1000ml - rate as directed by proceduralist Total Volume Intravenous Fluid infused documented in the Medication Administration Record (MAR) Site condition at IV removal: [x ] Clear [ ] Bruised [ ] other: Administration of IV anxiolysis procedural medications documented in MAR as ordered by proceduralist documented in this encounter Plan of Treatment Scheduled Orders Name Type Priority Associated Diagnoses Order S chedule Epidural steroid Neurology Routine One Time fo r 1 injection Occurrences sta rting 05/07/2013 unti l 05/07/2013 documented as of this encounter Visit Diagnoses Diagnosis Lumbar radiculopathy - Primary Thoracic or lumbosacral neuritis or radi culitis, unspecified documented in this encounter Administered Medications Inactive Administered Medications - up to 3 most recent administrations Medication Order MAR Action Action Date Dose Rate Site iohexol (OMNIPAQUE) injection 1 mL Given 05/07/2013 9:00 AM EDT 1 mL 1 mL, Other, ONCE PRN, 1 dose, Starting on Fri05/07/13 at 0959, Until Fri05/07/13 at 0900, Per Protocol, Routine methylPREDNISolone acetate (depo-MEDROL) Given 05/07/2013 10:30 AM EDT 120 mg injection 120 mg 120 mg, Epidural, ONCE, 1 dose, On Fri05/07/13 at 1030, Routine midazolam (VERSED) injection 1 mg Given 05/07/2013 10:05 AM EDT 1 mg 1 mg, Intravenous, ONCE PRN, 1 dose, Starting on Fri05/07/13 at 1004, Until Fri05/07/13 at 1005, Anxiety, Routine documented in this encounter Care Teams Qa Reviewer Relationship Specialty Start Date End Date Jitendra Schwab MD PCP - General 06/19/10 [address] [place] [address] documented as of this encounter
--- OUTSIDE RECORDS SUMMARY | 2022-02-05 12:17 | XMS_ITS | Encounter Summary ---
:1950 Author Organization [facility] [place] [address] Care Team Providers Name Role Phone Jitendra Schwab MD Primary Care Provider Reason for Visit Reason Onset Date Comments Other 09/24/2012 Encounter Details Date Type Department Care Team Description 09/24/2012 Telephone Pain Management at [place] [address] Social History Tobacco Use Types Packs/Day Years Used Date Current Every Day Smoker 0.5 Alcohol Use Standard Drinks/Week Comments No 0 (1 standard drink = 0.6 oz pure alcoho l) Sex Assigned at Date Recorded Not on file documented as of this encounter Miscellaneous Notes Telephone Encounter - Shameka Painting RN - 09/24/2012 3:08 PM EST Fluoroscopy Procedure Request Procedure Requested: Reapeat LESI Date(s) of Last Procedure: 06/17/12 Did requested procedure relieve pain? _x__ Yes - For how long? Until the last 2 weeks. Pain now returning Patient taking anticoagulants? _x_ Yes. We have a Scanned document giving permission to temporary hold Plavix for procedures up to one year signed by Dr. Schwab. This document is good for one year up until 11/20/12. Changes in usual pain pattern or pertinent recent trauma or surgery? _x_ No, call was transferred to clinic scheduler to make appointment for requested procedure. Patient's questions regarding requested procedure were answered and patient verbalized understanding. Patient knows how to contact the Pain Management Center and understands that they may do so at any time should they have further questions or concerns. documented in this encounter Plan of Treatment Not on filedocumented as of this encounter Visit Diagnoses Not on filedocumented in this encounter Care Teams Director Of Creative Services Relationship Specialty Start Date End Date Jitendra Schwab MD PCP - General 06/19/10 [address] [place] [address] documented as of this encounter
--- OUTSIDE RECORDS SUMMARY | 2022-02-05 12:17 | XMS_ITS | Encounter Summary ---
:1950 Author Organization [facility] [place] [address] Care Team Providers Name Role Phone Jitendra Schwab MD Primary Care Provider Encounter Details Date Type Department Care Team Description 10/27/2013 Telephone Pain Management at Vandana Hernandez, [place] [address] Social History Tobacco Use Types Packs/Day Years Used Date Current Every Day Smoker 0.5 Alcohol Use Standard Drinks/Week Comments No 0 (1 standard drink = 0.6 oz pure alcoho l) Sex Assigned at Date Recorded Not on file documented as of this encounter Miscellaneous Notes Telephone Encounter - Vandana Mcfadden, RN - 10/27/2013 1:59 PM EDT Gianna Hermosillo :1950 Message left: I left a message on answering machine Ms. Hermosillo at 1:59 PM regarding her upcoming Neither lumbar epidural steroid injection with Dr. Keyur Vinson MD. Message included the followin. Patient instructed to arrive at 1230 (30 minutes prior to procedure start time) on 10/29/13 (date of procedure) with their driver's education instructor. 2. Following instructions left in the message: [...] 3. If patient NPO: No food after 0700 (6 hours prior to procedure start time); clear fluids only up until 1100 (2 hours prior to procedure start time) Vandana Mcfadden RN documented in this encounter Plan of Treatment Not on filedocumented as of this encounter Visit Diagnoses Not on filedocumented in this encounter Care Teams Lopper Relationship Specialty Start Date End Date Jitendra Schwab MD PCP - General 06/19/10 [address] [place] [address] documented as of this encounter
--- OUTSIDE RECORDS SUMMARY | 2022-02-05 12:17 | XMS_ITS | Encounter Summary ---
:1950 Author Organization [facility] [place] [address] Care Team Providers Name Role Phone Jitendra Schwab MD Primary Care Provider Encounter Details Date Type Department Care Team Description 04/07/2013 Telephone Pain Management at [facility] Vandana Mcfadden, [place] [address] Social History Tobacco Use Types Packs/Day Years Used Date Current Every Day Smoker 0.5 Alcohol Use Standard Drinks/Week Comments No 0 (1 standard drink = 0.6 oz pure alcoho l) Sex Assigned at Date Recorded Not on file documented as of this encounter Miscellaneous Notes Telephone Encounter - Vandana Mcfadden, RN - 04/07/2013 3:31 PM EDT Fluoroscopy Procedure Request Procedure Requested: lumbar epidural steroid injection. Date(s) of Last Procedure: 10/21/2012 Did requested procedure relieve pain? __x_ Yes - For how long 4 months? ___ No Patient taking anticoagulants? ___ No __X_ Yes Patient understands that they will be contacted by health administration teacher once permission obtained from prescriber Dr. Schwab to temporarily discontinue anticoagulant Plavix per Pain Management Center protocol. Patient has pacemaker/defibrillator: No Changes in usual pain pattern or pertinent recent trauma or surgery? _x__ No, patient transferred or will be contacted by health administration teacher to make appointment for requested procedure. ___ [...] on filedocumented in this encounter Care Teams Seasonal Delivery Driver Relationship Specialty Start Date End Date Jitendra Schwab MD PCP - General 06/19/10 [address] [place] [address] documented as of this encounter
--- OUTSIDE RECORDS SUMMARY | 2022-02-05 12:17 | XMS_ITS | Encounter Summary ---
:1950 Author Organization [place] [address] Care Team Providers Name Role Phone Jitendra Schwab MD Primary Care Provider Encounter Details Date Type Department Care Team Description 06/01/2014 Telephone Pain Management at Tricia Pompa, [place] [address] Social History Tobacco Use Types Packs/Day Years Used Date Current Every Day Smoker 0.5 Alcohol Use Standard Drinks/Week Comments No 0 (1 standard drink = 0.6 oz pure alcoho l) Sex Assigned at Date Recorded Not on file documented as of this encounter Miscellaneous Notes Telephone Encounter - Tricia Walls, RN - 06/01/2014 3:13 PM EST I returned a call to Ms. Hermosillo and had to leave a message for her to call back. Her message: She wants to have an injection on 06/22/2014 and has will stop her Plavix authorized by Dr. Schwab. documented in this encounter Plan of Treatment Not on filedocumented as of this encounter Visit Diagnoses Not on filedocumented in this encounter Care Teams Machine Setter And Repairer Relationship Specialty Start Date End Date Jitendra Schwab MD PCP - General 06/19/10 [address] [place] [address] documented as of this encounter
--- OUTSIDE RECORDS SUMMARY | 2022-02-05 12:17 | XMS_ITS | Encounter Summary ---
:1950 Author Organization [facility] [place] [address] Care Team Providers Name Role Phone Jitendra Schwab MD Primary Care Provider Encounter Details Date Type Department Care Team Description 01/19/2014 Telephone Pain Management [place] [address] Social History Tobacco Use Types Packs/Day Years Used Date Current Every Day Smoker 0.5 Alcohol Use Standard Drinks/Week Comments No 0 (1 standard drink = 0.6 oz pure alcoho l) Sex Assigned at Date Recorded Not on file documented as of this encounter Miscellaneous Notes Telephone Encounter - Halina Goncalves LPN - 01/19/2014 1:21 PM EDT Called patient to review instructions for the upcoming scheduled procedure on January 25, 2014, LESI w/ anxiolysis. Left message for patient to call the PC to review instructions for this procedure. documented in this encounter Plan of Treatment Not on filedocumented as of this encounter Visit Diagnoses Not on filedocumented in this encounter Care Teams Warehouse Processor Relationship Specialty Start Date End Date Jitendra Schwab MD PCP - General 06/19/10 [address] [place] [address] documented as of this encounter
--- OUTSIDE RECORDS SUMMARY | 2022-02-05 12:17 | XMS_ITS | Encounter Summary ---
:1950 Author Organization [place] [address] Care Team Providers Name Role Phone Jitendra Schwab MD Primary Care Provider Encounter Details Date Type Department Care Team Description 10/21/2012 Orders Only Pain Management at Lonnie Ambrose MD [facility] [place] [address] PAIN CLINIC [phone] [place] [id number] (Wo rk) Social History Tobacco Use Types [...] Associated Diagnosis Comme nts FILM LIBRARY Routine 10/21/2012 2:15 PM Results f or this STORAGE ONLY PAIN EDT procedure are in CLINIC C ARM the results section. documented in this encounter Results Film Library-storage only pain clinic C-arm (10/21/2012 2:15 PM EDT) Specimen (Source) Anatomical Collection Method Collection Time Re ceived Time Location / / Volume Laterality 10/21/2012 2:15 PM EDT Narrative DH RAD - 03/17/2014 6:10 PM EDT This is a non-reportable exam. Procedure Note Gaurav Puckett - 03/17/2014Formatti ng of this note might be different from the original. This is a non-reportable exam. Lonnie Juarez MD IMG FILM LIBRARY ORDERABLES Performing Organization Address City/State/ZIP Code Phon e Number DH RAD RAD [address] [facility] [place] [address] documented in this encounter Visit Diagnoses Not on filedocumented in this encounter Care Teams Nurses[employer] Executive Director Relationship Specialty Start Date End Date Jitendra Schwab MD PCP - General 06/19/10 [address] [place] [address] documented as of this encounter
--- OUTSIDE RECORDS SUMMARY | 2022-02-05 12:17 | XMS_ITS | Encounter Summary ---
:1950 Author Organization [facility] [place] [address] Care Team Providers Name Role Phone Jitendra Schwab MD Primary Care Provider Encounter Details Date Type Department Care Team Description 06/17/2012 Orders Only Pain Management at [facility] Jc Villrareal MD [facility] [place] [address] PAIN CLINIC [phone] [place] [id number] (Wo rk) Social History Tobacco Use Types Packs/Day Years Used Date Current Every Day Smoker 0.5 Sex Assigned at Date Recorded Not on file documented as of this encounter Plan of Treatment Not on filedocumented as of this encounter Procedures Procedure Name Priority Date/Time Associated Diagnosis Comme nts FILM LIBRARY Routine 06/17/2012 3:30 PM Results f or this STORAGE ONLY PAIN EST procedure are in CLINIC C ARM the results section. documented in this encounter Results FILM LIBRARY-STORAGE ONLY PAIN CLINIC C-ARM (06/17/2012 3:30 PM EST) Specimen (Source) Anatomical Collection Method Collection Time Re ceived Time Location / / Volume Laterality 06/17/2012 3:30 PM EST Narrative RAD - 01/21/2014 1:33 AM EDT This is a non-reportable exam. Procedure Note Clive Puckett - 01/21/2014Formatting of t his note might be different from the original. This is a non-reportable exam. Jc Villarreal MD [facility] FILM LIBRARY ORDERABLES Performing Organization Address City/State/ZIP Code Phon e Number DH RAD DH RAD [address] [facility] [place] [address] documented in this encounter Visit Diagnoses Not on filedocumented in this encounter Care Teams Swedish Masseuse Relationship Specialty Start Date End Date Jitendra Schwab MD PCP - General 06/19/10 [address] [place] [address] documented as of this encounter
--- OUTSIDE RECORDS SUMMARY | 2022-02-05 12:17 | XMS_ITS | Encounter Summary ---
:1950 [place] [address] Care Team Providers Name Role Phone Jitendra Schwab MD Primary Care Provider Encounter Details Date Type Department Care Team Description 05/04/2013 Telephone Pain Management at [facility] [place] [address] Social History Tobacco Use Types Packs/Day Years Used Date Current Every Day Smoker 0.5 Alcohol Use Standard Drinks/Week Comments No 0 (1 standard drink = 0.6 oz pure alcoho l) Sex Assigned at Date Recorded Not on file documented as of this encounter Miscellaneous Notes Telephone Encounter - Aaliyah Castellanos RN - 05/04/2013 12:13 PM EDT Gianna Hermosillo :1950 Message left: I left a message on answering machine Ms. Hermosillo at 12:14 PM regarding her upcoming lumbar epidural steroid injection with Dr. Keyur Vinson MD. Message included the followin. Patient to bring updated list of medications including dosage and reason for taking. 2. Call the Pain Clinic Triage Nurse for procedure instructions at [phone]. 3. Instructed to arrive at 9:00 (30 minutes prior to procedure start time) on 05/07/13 (date of procedure) with their school bus driver/custodian. Aaliyah Castellanos RN documented in this encounter Plan of Treatment Not on filedocumented as of this encounter Visit Diagnoses Not on filedocumented in this encounter Care Teams Ball Winder Relationship Specialty Start Date End Date Jitendra Schwab MD PCP - General 06/19/10 [address] [place] [address] documented as of this encounter
--- OUTSIDE RECORDS SUMMARY | 2022-02-05 12:17 | XMS_ITS | Encounter Summary ---
:1950 Author Organization [place] [address] Care Team Providers Name Role Phone Jitendra Schwab MD Primary Care Provider Encounter Details Date Type Department Care Team Description 06/02/2014 Telephone Pain Management [place] [address] Social History Tobacco Use Types Packs/Day Years Used Date Current Every Day Smoker 0.5 Alcohol Use Standard Drinks/Week Comments No 0 (1 standard drink = 0.6 oz pure alcoho l) Sex Assigned at Date Recorded Not on file documented as of this encounter Miscellaneous Notes Telephone Encounter - Mansi Muñoz LPN - 06/02/2014 8:47 AM EST Fluoroscopy Procedure Request Procedure Requested: lumbar epidural steroid injection Date(s) of Last Procedure: 01/25/14 Did requested procedure relieve pain? _x__ Yes - For how long 3 months? 70 % of relief received from previous injection. Have you had any steroid injections anywhere in your body within the last two weeks? no Patient taking anticoagulants? _x__ Yes Patient understands that they will be contacted by scheduler conveyor once permission obtained from prescriber Dr. Schwab to temporarily discontinue anticoagulant Plavix per [facility] protocol. Patient has pacemaker/defibrillator: No Changes in usual pain pattern or pertinent recent trauma or surgery? _x__ No, patient transferred or will be contacted by scheduler conveyor to make appointment for requested procedure. Patient's questions regarding requested procedure were answered and patient verbalized understanding. Patient knows how to contact the Pain Management Center and understands that they may do so at any time should they have further questions or concerns. Mansi Muñoz LPN documented in this encounter Plan of Treatment Not on filedocumented as of this encounter Visit Diagnoses Not on filedocumented in this encounter Care Teams Glaze Supervisor Relationship Specialty Start Date End Date Jitendra Schwab MD PCP - General 06/19/10 [address] [place] [address] documented as of this encounter
--- OUTSIDE RECORDS SUMMARY | 2022-02-05 12:17 | XMS_ITS | Encounter Summary ---
:1950 Author Organization [facility] [place] [address] Care Team Providers Name Role Phone Jitendra Schwab MD Primary Care Provider Encounter Details Date Type Department Care Team Description 04/09/2013 Telephone Pain Management at Tricia Pompa, [place] [address] Social History Tobacco Use Types Packs/Day Years Used Date Current Every Day Smoker 0.5 Alcohol Use Standard Drinks/Week Comments No 0 (1 standard drink = 0.6 oz pure alcoho l) Sex Assigned at Date Recorded Not on file documented as of this encounter Miscellaneous Notes Telephone Encounter - Tricia Walls RN - 04/09/2013 3:04 PM EDT [facility] Temporary Anticoagulant Hold Documentation Patient: Gianna Hermosillo [id number] Schwab to temporarily stop Plavix for 7 days prior to requested injection/procedure. See signed permission received from prescriber scanned into electronic record. Tricia Walls RN documented in this encounter Plan of Treatment Not on filedocumented as of this encounter Visit Diagnoses Not on filedocumented in this encounter Care Teams Doctor Of Audiology Relationship Specialty Start Date End Date Jitendra Schwab MD PCP - General 06/19/10 [address] [place] [address] documented as of this encounter
--- OUTSIDE RECORDS SUMMARY | 2022-02-05 12:17 | XMS_ITS | Encounter Summary ---
:1950 Author Organization [facility] [place] [address] Care Team Providers Name Role Phone Jitendra Schwab MD Primary Care Provider Encounter Details Date Type Department Care Team Description 06/18/2013 Telephone Pain Management at Vandana [place], [place] [address] Social History Tobacco Use Types Packs/Day Years Used Date Current Every Day Smoker 0.5 Alcohol Use Standard Drinks/Week Comments No 0 (1 standard drink = 0.6 oz pure alcoho l) Sex Assigned at Date Recorded Not on file documented as of this encounter Miscellaneous Notes Telephone Encounter - Vandana Harris, FACILITY SALES AND ADMIN - 06/18/2013 1:27 PM EST Gianna Hermosillo :1950 Message left: I left a message on answering machine Ms. Hermosillo at 1:27 PM regarding her upcoming lumbar epidural steroid injection with Dr. Keyur Vinson MD. Message included the followin. Patient instructed to arrive at (30 minutes prior to procedure start time) on 06-22-13 (date of procedure) with their patient transportation driver. 2. Following instructions left in the [...] blood thinners (Plavix, Pletal, Lovenox, Coumadin, etc). 3. If patient NPO: (6 hours prior to procedure start time); clear fluids (2 hours prior to procedurestart time) Vandana Harris LPN documented in this encounter Plan of Treatment Not on filedocumented as of this encounter Visit Diagnoses Not on filedocumented in this encounter Care Teams Emc Storage Architect Relationship Specialty Start Date End Date Jitendra Schwab MD PCP - General 06/19/10 [address] [place] [address] documented as of this encounter
--- OUTSIDE RECORDS SUMMARY | 2022-02-05 12:17 | XMS_ITS | Encounter Summary ---
:1950 Author Organization [facility] [place] [address] Care Team Providers Name Role Phone Jitendra Schwab MD Primary Care Provider Encounter Details Date Type Department Care Team Description 08/02/2011 Orders Only Pain Management at Jc Nielsen [facility] [place] [address] [facility] [phone] [place] [id number] (Wo rk) Social History Tobacco Use Types Packs/Day Years Used Date Current Every Day Smoker 0.5 Sex Assigned at Date Recorded Not on file documented as of this encounter Plan of Treatment Not on filedocumented as of this encounter Procedures Procedure Name Priority Date/Time Associated Diagnosis Comme nts FILM LIBRARY Routine 08/02/2011 1:00 PM Results f or this STORAGE ONLY PAIN EST procedure are in CLINIC [facility] ARM the results section. documented in this encounter Results FILM LIBRARY-STORAGE ONLY PAIN CLINIC C-ARM (08/02/2011 1:00 PM EST) Specimen (Source) Anatomical Collection Method Collection Time Re ceived Time Location / / Volume Laterality 08/02/2011 1:00 PM EST Narrative RAD - 12/21/2013 11:40 AM EDT This is a non-reportable exam. Procedure Note Clive Puckett - 12/21/2013Formatting of t his note might be different from the original. This is a non-reportable exam. Jc Villarreal MD [facility] FILM LIBRARY ORDERABLES Performing Organization Address City/State/ZIP Code Phon e Number DH RAD DH RAD [address] [facility] [place] [address] documented in this encounter Visit Diagnoses Not on filedocumented in this encounter Care Teams Short Story Writer Relationship Specialty Start Date End Date Jitendra Schwab MD PCP - General 06/19/10 [address] [place] [address] documented as of this encounter
--- OUTSIDE RECORDS SUMMARY | 2022-02-05 12:17 | XMS_ITS | Encounter Summary ---
:1950 [place] [address] Care Team Providers Name Role Phone Jitendra Schwab MD Primary Care Provider Encounter Details Date Type Department Care Team Description 05/05/2013 Telephone Pain Management [place] [address] Social History Tobacco Use Types Packs/Day Years Used Date Current Every Day Smoker 0.5 Alcohol Use Standard Drinks/Week Comments No 0 (1 standard drink = 0.6 oz pure alcoho l) Sex Assigned at Date Recorded Not on file documented as of this encounter Miscellaneous Notes Telephone Encounter - Mansi Muñoz LPN - 05/05/2013 4:36 PM EDT Gianna Hermosillo :1950 Message left: I left a message on answering machine Ms. Hermosillo at 4:36 PM regarding her upcoming lumbar epidural steroid injection with Dr. Keyur Vinson MD. Message included the followin. Patient to bring updated list of medications including dosage and reason for taking. 2. Call the Pain Clinic Triage Nurse for procedure instructions at [phone]. 3. Instructed to arrive 30 minutes prior to procedure start time with their food service driver. Mansi Muñoz LPN documented in this encounter Plan of Treatment Not on filedocumented as of this encounter Visit Diagnoses Not on filedocumented in this encounter Care Teams Hospice Music Therapist Relationship Specialty Start Date End Date Jitendra Schwab MD PCP - General 06/19/10 [address] [place] [address] documented as of this encounter
--- OUTSIDE RECORDS SUMMARY | 2022-02-05 12:17 | XMS_ITS | Encounter Summary ---
:1950 Author Organization [facility] [place] [address] Care Team Providers Name Role Phone Jitendra Schwab MD Primary Care Provider Reason for Visit Reason Comments Blurred Vision 2 year check PPV/mp OD IOL:O U Encounter Details Date Type Department Care Team Description 08/07/2012 Follow-Up Ophthalmology at [facility] C Tricia Jenkins Post-operative state [facility] D cecilio Reynoso MD (Primary Dx) [place] [address] [facility] [phone] OPHTHALMOLOGY DE PT. [place], [place] [address] (Wo rk) Social History Tobacco Use Types Packs/Day Years Used Date Current Every Day Smoker 0.5 Alcohol Use Standard Drinks/Week Comments No 0 (1 standard drink = 0.6 oz pure alcoho l) Sex Assigned at Date Recorded Not on file documented as of this encounter Progress Notes Tricia Jenkins MD - 08/07/2012 3:06 PM EST OD: pcIOL, retina stable post op erm peeling. OS: minimal macular ERM. No treatment recommended. Plan: Continue with Dr Gomez for refractive and dry eye care. documented in this encounter Plan of Treatment Not on filedocumented as of this encounter Visit Diagnoses Diagnosis Post-operative state - Primary Other postprocedural status documented in this encounter Care Teams Front End Developer Javascript Html Css Relationship Specialty Start Date End Date Jitendra Schwab MD PCP - General 06/19/10 [address] [place] [address] documented as of this encounter
--- OUTSIDE RECORDS SUMMARY | 2022-02-05 12:17 | XMS_ITS | Encounter Summary ---
:1950 [place] [address] Care Team Providers Name Role Phone Jitendra Schwab MD Primary Care Provider Reason for Visit Reason Onset Date Comments Pre Procedure Call 04/28/2012 Encounter Details Date Type Department Care Team Description 04/28/2012 Telephone Pain Management at Roselia Re[place] [address] Social History Tobacco Use Types Packs/Day Years Used Date Current Every Day Smoker 0.5 Sex Assigned at Date Recorded Not on file documented as of this encounter Miscellaneous Notes Telephone Encounter - Roselia Reza RN - 04/28/2012 2:23 PM EDT Fluoroscopy Procedure Request Procedure Requested: ELLA Katz usually has an IV with anxiolysis. Her last LESI in 11/[address] an IV. I have called the office of Dr. Jitendra Schwab and spoke with Kandi to request that Dr. Schwab prescribe an oral Valium that Gianna can take 45 minutes prior to the next procedure to avoid the need sushila IV. Kandi will communicate with Dr. Schwab and arrange with Gianna to obtain the Valium. Date(s) of Last Procedure: 12/06/2011, 08/02/2011, 03/2011 Did requested procedure relieve pain? _x__ Yes - For how long? Until 2 weeks ago Patient taking anticoagulants? _x__ Yes. We have permission from Dr. Jitendra Schwab for Gianna to stop Plavix for 7 days prior to this procedure. Dr. Schwab gave this permission on 11/21/2011 for a period of one year. Changes in usual pain pattern or pertinent recent trauma or surgery? _x__ No, patient transferred or will be contacted by electronic organ technician to make appointment for requested procedure. _Patient's questions regarding requested procedure were answered and patient verbalized understanding. Patient knows how to contact the Pain Management Center and understands that they may do so at any time should they have further questions or concerns. documented in this encounter Plan of Treatment Not on filedocumented as of this encounter Visit Diagnoses Not on filedocumented in this encounter Care Teams Mixing Machine Tender Relationship Specialty Start Date End Date Jitendra Schwab MD PCP - General 06/19/[address] [place] [address] documented as of this encounter
--- OUTSIDE RECORDS SUMMARY | 2022-02-05 12:17 | XMS_ITS | Encounter Summary ---
:1950 Author Organization [facility] [place] [address] Care Team Providers Name Role Phone Jitendra Schwab MD Primary Care Provider Encounter Details Date Type Department Care Team Description 10/29/2013 Telephone Pain Management at Heide Hernandez, [place] [address] Social History Tobacco Use Types Packs/Day Years Used Date Current Every Day Smoker 0.5 Alcohol Use Standard Drinks/Week Comments No 0 (1 standard drink = 0.6 oz pure alcoho l) Sex Assigned at Date Recorded Not on file documented as of this encounter Miscellaneous Notes Telephone Encounter - Heide Mcfadden RN - 10/29/2013 7:27 AM EDT VM left on Triage line from patient stating that she will not be in today for her procedure. Patienthas cold symptoms. Pain Medical Insurance Coding Specialist will be notified. HEIDE MCFADDEN RN documented in this encounter Plan of Treatment Not on filedocumented as of this encounter Visit Diagnoses Not on filedocumented in this encounter Care Teams Cementer Hand Relationship Specialty Start Date End Date Jitendra Schwab MD PCP - General 06/19/10 [address] [place] [address] documented as of this encounter
--- OUTSIDE RECORDS SUMMARY | 2022-02-05 12:17 | XMS_ITS | Encounter Summary ---
:1950 Author Organization [facility] [place] [address] Care Team Providers Name Role Phone Jitendra Schwab MD Primary Care Provider Encounter Details Date Type Department Care Team Description 12/06/2011 Orders Only Pain Management at Jc Nielsen MD [facility] [place] [address] PAIN CLINIC [phone] [place] [id number] (Wo rk) Social History Tobacco Use Types Packs/Day Years Used Date Current Every Day Smoker 0.5 Sex Assigned at Date Recorded Not on file documented as of this encounter Plan of Treatment Not on filedocumented as of this encounter Procedures Procedure Name Priority Date/Time Associated Diagnosis Comme nts FILM LIBRARY Routine 12/06/2011 8:00 AM Results f or this STORAGE ONLY PAIN EDT procedure are in CLINIC C ARM the results section. documented in this encounter Results FILM LIBRARY-STORAGE ONLY PAIN CLINIC C-ARM (12/06/2011 8:00 AM EDT) Specimen (Source) Anatomical Collection Method Collection Time Re ceived Time Location / / Volume Laterality 12/06/2011 8:00 AM EDT Narrative RAD - 01/21/2014 1:33 AM EDT This is a non-reportable exam. Procedure Note Clive Puckett - 01/21/2014Formatting of t his note might be different from the original. This is a non-reportable exam. Jc Villarreal MD G FILM LIBRARY ORDERABLES Performing Organization Address City/State/ZIP Code Phon e Number DH RAD DH RAD [address] [facility] [place] [address] documented in this encounter Visit Diagnoses Not on filedocumented in this encounter Care Teams Seafood Harvester Relationship Specialty Start Date End Date Jitendra Schwab MD PCP - General 06/19/10 [address] [place] [address] documented as of this encounter
--- OUTSIDE RECORDS SUMMARY | 2022-02-05 12:17 | XMS_ITS | Encounter Summary ---
:1950 Author Organization [facility] [place] [address] Care Team Providers Name Role Phone Jitendra Schwab MD Primary Care Provider Reason for Visit Reason Comments Low Back Pain With Radicular Pain Encounter Details Date Type Department Care Team Description 06/17/2012 Procedure visit Pain Management at [facility] (Primary Dx) [facility] [id number] [place] [address] [phone] Social History Tobacco Use Types Packs/Day Years Used Date Current Every Day Smoker 0.5 Sex Assigned at Date Recorded Not on file documented as of this encounter Last Filed Vital Signs Vital Sign Reading Time Taken Comments Blood Pressure 163/106 06/17/2012 4:26 PM EST Pulse 104 06/17/2012 4:26 PM EST Temperature - - Respiratory Rate - - Oxygen Saturation 99% 06/17/2012 4:26 PM EST Inhaled Oxygen Concentration - - Weight - - Height - - Body Mass Index - - documented in this encounter Patient Instructions Patient InstructionsSondra Gilmore RN - 06/17/2012 4:20 PM EST Pain Management Center Discharge Instructions: You were seen by Dr. Jc Villarreal MD and Yuriy Patel MD who performed lumbar epidural steroid injection. [...] for 20 minutes.Do not apply heat today. Attempt to empty your bladder 4-6 hours after your procedure. You received the following medications: Depo-medrol 80 mg, Lidocaine and Omnipaque (contrast dye). During regular business hours, please phone the Pain Management Center at for appointments or with any questions or if the following or other troubling symptoms develop: 1) Localized swelling, redness or drainage at the injection site(s). 2) Temperature of 101 degrees that lasts for more than 4 hours. After 5 PM or on weekends, call and ask for Pain Clinic provider on-call. If you are unable to reach the Pain Management Center and have a complication, please call your Primary Care Provider or proceed to your local emergency department. Sondra Gilmore RN documented in this encounter Progress Notes Jc Villarreal MD - 06/17/2012 5:01 PM EST I was the attending physician supervising the resident in the above care and I was present with the resident for the entire procedure. I personally performed the procedure at the patients request. She is requesting to resume IV sedation. Sondra Gilmore RN - 06/17/2012 4:18 PM EST Pre-Procedure Screening Questions: 1. Status: No 2. Patient states they have a airport driver to transport them after the procedure? Yes 3. Patient taking antibiotics at present? No 4. NPO per Pain Management Center protocol? Yes 5. Patient diabetic: No 6. Patient routinely taking anticoagulants? Yes Date of last dose 06/09/12 Current INR n/a Patient Vital Signs documented in Doc Flowsheets associated with this encounter. Patient Discharge Instructions were reviewed with patient and copy provided to patient. documented in this encounter Procedure Notes Yuriy Patel MD - 06/17/2012 4:37 PM ESTAssociated Order(s): EPIDURAL STEROID INJECTION Procedure(s): EPIDURAL STEROID INJECTION Pre-Procedure Diagnose(s): Sciatica Lumbar Epidural Steroid Injection Date of Service: 06/17/2012 Patient: Gianna Hermosillo Requesting Provider: Jitendra Schwab Provider: YURIY PATEL MD COMMENTS: Patient presents with predominately left leg pain. Multiple prior LESIs (left paramedian L5-S1). Patient is on Plavix, but has held it for 1 week now. Gianna Hermosillo has been referred to the Pain Management Center for epidural steroid injection. Ms. Hermosillo was interviewed and the medical record reviewed. There were no medical, pharmacologic, radiographic or other structural contraindications to attempting fluoroscopically guided epidural steroid injection. Risks and expected side effects as well as potential benefit of the procedure were revie wed with Ms. Hermosillo, and her voiced concerns addressed. The printed consent form was signed and witnessed. Standard time-out procedure was performed. The patient was placed in the prone position on the fluoroscopy table and automated blood pressure cuff and pulse oximeter applied. The skin entry point for entering the epidural space by a left paramedian L5-S1 interlaminar approach was identified under fluoroscopy and marked. Following thorough Chlorhexadine preparation of the skin and draping and 1% lidocaine infiltration of the skin entry point and subcutaneous tissues, a 18 gauge Tuohy needle was placed under fluoroscopic guidance with loss of resistance technique into the epidural space. There was no paresthesia or return of blood or CSF through the needle. 1 cc Omnipaque 240 was injected with clear epidural spread in the A/P view confirming epidural placement without vascular uptake. 80 mg Depomedrol was injected with no unusual discomfortexpressed by the patient after which the needle was flushed with normal saline. Dr. Villarreal performed the procedure, per patient request. Ms. Hermosillo's vital signs were stable throughout the procedure and recorded in the docflowsheet by the nursing staff. Follow up plans and appointments were discussed with the Ms. Hermosillo. Post procedure instruction was given as documented in nursing documentation and having met discharge criteria, she was discharged from the Pain Management Center. Comments: No complications; reduced steroid dose used due to the frequency of the patient's injections. F/U with Jitendra Schwab. CC: JITENDRA SCHWAB MD @PCPADD@ documented in this encounter Miscellaneous Notes Miscellaneous - Edwin, Coal Screener - 06/23/2012 1:12 PM EST documented in this encounter Plan of Treatment Not on filedocumented as of this encounter Procedures Procedure Name Priority Date/Time Associated Diagnosis Comme nts EPIDURAL STEROID Routine 06/17/2012 5:01 PM Sciatica Resul ts for this INJECTION EST procedure are i n the results section. documented in this encounter Results EPIDURAL STEROID INJECTION (06/17/2012 5:01 PM EST) Narrative Jc Villarreal MD - 06/17/2012 5:01 P M EST Lumbar Epidural Steroid Injection Date of Service: ??06/17/2012 Patient: ??Gianna Hermosillo ?? MRN: ??[id number] Requesting Provider: Jitendra Schwab Provider: ??YURIY PATEL MD ?? COMMENTS: Patient presents with predomin ately left leg pain. Multiple prior LESIs (left paramedian L5-S1). Dunia gayle is on Plavix, but has held it for 1 week now. Gianna Hermosillo has been referred to the Pain Management Center for epidural steroid injection. ?? Ms. Hermosillo was interviewed and the medic al record reviewed. ??There were no medical, pharmacologic, radiographic or other structural contraindications to attempting fluoroscopically guided ep idural steroid injection. ??Risks and expected side effects as well as pot ential benefit of the procedure were reviewed with Ms. Hermosillo, and her v oiced concerns addressed. ??The printed consent form was signed and witn essed. ??Standard time-out procedure was performed. The patient was placed in the prone posi tion on the fluoroscopy table and automated blood pressure cuff and pulse oximeter applied. ??The skin entry point for entering the epidural space by a left paramedian L5-S1 interlaminar approach was identified und er fluoroscopy and marked. ?? Following thorough Chlorhexadine prepara tion of the skin and draping and 1% lidocaine infiltration of the skin en try point and subcutaneous tissues, a 18 gauge Tuohy needle was devora brittnee under fluoroscopic guidance with loss of resistance technique into t he epidural space. ??There was no paresthesia or return of blood or CSF th rough the needle. 1 cc Omnipaque 240 was injected with clear epidural spr ead in the A/P view confirming epidural placement without vascular upta ke. 80 mg Depomedrol was injected with no unusual discomfort expressed by the patient after which the needle was flushed with normal saline. Dr. Villarreal performed the procedure, per patient request. Ms. Hermosillo's vital signs were stable thr oughout the procedure and recorded in the docflowsheet by the nursing staff . ?? Follow up plans and appointments were di scussed with the Ms. Hermosillo. ??Post procedure instruction was given as docum ented in nursing documentation and having met discharge criteria, she was d ischarged from the Pain Management Center. Comments: No complications; reduced ster oid dose used due to the frequency of the patient's injections. F/U with Jitendra Schwab. CC: JITENDRA SCHWAB MD @PCPADD@ Procedure Note Yuriy Patel MD - 06/17/2012 4:37 PM EST Lumbar Epidural Steroid Injection Date of Service: 06/17/2012 Patient: Gianna Hermosillo Requesting Provider: Jitendra Schwab Provider: YURIY PATEL MD COMMENTS: Patient presents with predomin ately left leg pain. Multiple prior LESIs (left paramedian L5-S1). Patient is on Plavix, but has held it for 1 week now. Gianna Hermosillo has been referred to the Pain Management Center for epidural steroid injection. Ms. Hermosillo was interviewed and the medic al record reviewed. There were no medical, pharmacologic, radiographic or other structural contraindications to attempting fluoroscopically guided epidural steroid injection. Risks and expected side effects as well as pot ential benefit of the procedure were reviewed with Ms. Hermosillo, and her voiced concerns addressed. The printed consent form was signed and witnessed. Standard time-out procedure was performed. The patient was placed in the prone posi tion on the fluoroscopy table and automated blood pressure cuff and pulse oximeter applied. The skin entry point for entering the epidural space by a left paramedian L5-S1 interlaminar approach was identified und er fluoroscopy and marked. Following thorough Chlorhexadine preparation of the skin and draping and 1% lidocaine infiltration of the skin entry point and subcutaneous tissues, a 18 gauge Tuohy needle was devora brittnee under fluoroscopic guidance with loss of resistance technique into the epidural space. There was no paresthesia or return of blood or CSF through the needle. 1 cc Omnipaque 240 was injected with clear epidural spr ead in the A/P view confirming epidural placement without vascular uptake. 80 mg Depomedrol was injected with no unusual discomfort expressed by the patient after which the needle was flushed with normal saline. Dr. Villarreal performed the procedure, per patient request. Ms. Hermosillo's vital signs were stable thr oughout the procedure and recorded in the docflowsheet by the nursing staff. Follow up plans and appointments were di scussed with the Ms. Hermosillo. Post procedure instruction was given as documented in nursing documentation and having met discharge criteria, she was discharged from the Pain Management Center. Comments: No complications; reduced ster oid dose used due to the frequency of the patient's injections. F/U with Jitendra Schwab. CC: JITENDRA SCHWAB MD @PCPADD@ Jc Villarreal MD NEUROLOGY ORDERABLES documented in this encounter Visit Diagnoses Diagnosis Sciatica - Primary documented in this encounter Administered Medications Inactive Administered Medications - up to 3 most recent administrations Medication Order MAR Action Action Date Dose Rate Site iohexol (OMNIPAQUE) injection 1 mL Given 06/17/2012 4:30 PM EST 1 mL 1 mL, Other, ONCE, 1 dose, On Fri06/17/12 at 1630, 49 ml wasted, Routine lidocaine (PF) (XYLOCAINE) 10 mg/mL (1 %) Given 06/17/2012 4:45 PM EST 50 mg injection 100 mg 100 mg, Subcutaneous, ONCE, 1 dose, On Fri06/17/12 at 1645, Routine methylPREDNISolone acetate (depo-MEDROL) Given 06/17/2012 4:30 P M EST 80 mg injection 120 mg 120 mg, Epidural, ONCE, 1 dose, On Fri06/17/12 at 1630, Routine documented in this encounter Care Teams Caving Guide Relationship Specialty Start Date End Date Jitendra Schwab MD PCP - General 06/19/10 [address] [place] [address] documented as of this encounter
--- OUTSIDE RECORDS SUMMARY | 2022-02-05 12:17 | XMS_ITS | Encounter Summary ---
:1950 Author Organization [facility] [place] [address] Care Team Providers Name Role Phone Jitendra Schwab MD Primary Care Provider Encounter Details Date Type Department Care Team Description 01/07/2013 Abstract Neurology at [facility] Jatin Miller MD [facility] [place] [address] NEUROLOGY DEPT. [phone] [place], [place] [address] (Wo rk) Social History Tobacco [...] on filedocumented in this encounter Care Teams Radiology Director Relationship Specialty Start Date End Date Jitendra Schwab MD PCP - General 06/19/10 [address] [place] [address] documented as of this encounter
--- OUTSIDE RECORDS SUMMARY | 2022-02-05 12:17 | XMS_ITS | Encounter Summary ---
:1950 Author Organization [facility] [place] [address] Care Team Providers Name Role Phone Jitendra Schwab MD Primary Care Provider Reason for Visit Reason Onset Date Comments Other 09/16/2012 Encounter Details Date Type Department Care Team Description 09/16/2012 Telephone Pain Management [place] [address] Social History Tobacco Use Types Packs/Day Years Used Date Current Every Day Smoker 0.5 Alcohol Use Standard Drinks/Week Comments No 0 (1 standard drink = 0.6 oz pure alcoho l) Sex Assigned at Date Recorded Not on file documented as of this encounter Miscellaneous Notes Telephone Encounter - Shameka Painting RN - 09/16/2012 11:10 AM EST I have attempted to contact this patient by phone with the following results: left message to returnmy call on answering machine. documented in this encounter Plan of Treatment Not on filedocumented as of this encounter Visit Diagnoses Not on filedocumented in this encounter Care Teams Thermostat Machine Tender Relationship Specialty Start Date End Date Jitendra Schwab MD PCP - General 06/19/10 [address] [place] [address] documented as of this encounter
--- OUTSIDE RECORDS SUMMARY | 2022-02-05 12:18 | XMS_ITS | Encounter Summary ---
:1950 Author Organization [facility] [place] [address] Care Team Providers Name Role Phone Jitendra Schwab MD Primary Care Provider Reason for Visit Reason Comments Other Approval to stop Plavix prio r to an LESI. Encounter Details Date Type Department Care Team Description 07/09/2011 Telephone Pain Management at Sondra Gilmore [facility] [facility] (Approval to stop [place] RN Plavix prior to an [facility] LESI.) [place] [address] Social History Tobacco Use Types Packs/Day Years Used Date Current Every Day Smoker 0.5 Sex Assigned at Date Recorded Not on file documented as of this encounter Miscellaneous Notes Telephone Encounter - Sondra Gilmore RN - 11/21/2011 4:51 PM EDT Pain Management Center Temporary Anticoagulant Hold Documentation Patient: Gianna Hermosillo [id number] Fax received today, 11/21/[address] Jitendra Schwab's office with a copy of the written request for permission to temporarily stop Plavix for 7 days prior to requested lumbar epidural steroid injection for up to one year - this form was dated 07/02/11. See signed permission received from Dr. Schwab dated 07/02/11 which will be scanned into electronic record. Kandi called and stated that Ms. Hermosillo called her today regarding the need for another injection. Hermilo call back Ms. Hermosillo to advise her to contact the Pain Management nurse to discuss scheduling another injection with Dr. Villarreal. Her last LESI was 08/02/[address] Villarreal. PT/INR ordered - n/a. Sondra Gilmore RN Telephone Encounter - Sondra Gilmore RN - 07/09/2011 5:08 PM EST Pain Management Center Temporary Anticoagulant Hold Documentation Patient: Gianna Hermosillo [id number] Permission received via phone from Kandi from Dr. Jitendra Schwab to temporarily stop Plavix for 7 daysprior to requested lumbar epidural steroid injection/procedure for one time only. PT/INR ordered - n/a. Sondra Gilmore RN documented in this encounter Plan of Treatment Not on filedocumented as of this encounter Visit Diagnoses Not on filedocumented in this encounter Care Teams All Source Collection Manager Relationship Specialty Start Date End Date Jitendra Schwab MD PCP - General 06/19/10 [address] [place] [address] documented as of this encounter
--- OUTSIDE RECORDS SUMMARY | 2022-02-05 12:18 | XMS_ITS | Encounter Summary ---
:1950 Author Organization [facility] [place] [address] Care Team Providers Name Role Phone Jitendra Schwab MD Primary Care Provider Encounter Details Date Type Department Care Team Description 06/13/2011 Orders Only Vascular Surgery at Jitendra Schwab, Dameon audication (Primary [facility] MD Dx) [facility] [address] [place] [id number] [place] [phone] (Work) [phone] Social History Tobacco Use Types Packs/Day Years Used Date Current Every Day Smoker 0.5 Sex Assigned at Date Recorded Not on file documented as of this encounter Plan of Treatment Not on filedocumented as of this encounter Visit Diagnoses Diagnosis Claudication - Primary Peripheral vascular disease, unspecified documented in this encounter Care Teams Cotton Cleaner Relationship Specialty Start Date End Date Jitendra Schwab MD PCP - General 06/19/[address] [place] [address] documented as of this encounter
--- OUTSIDE RECORDS SUMMARY | 2022-02-05 12:18 | XMS_ITS | Encounter Summary ---
:1950 Author Organization [facility] [place] [address] Care Team Providers Name Role Phone Jitendra Schwab MD Primary Care Provider Reason for Visit Reason Comments Backache Bilateral leg pain Encounter Details Date Type Department Care Team Description 04/05/2011 Office Visit Pain Management at Jc Villarreal Lumb ar radiculopathy [facility] (Primary Dx) [facility] [address] [facility] [id number] [place] [address] [phone] Social History Tobacco Use Types Packs/Day Years Used Date Current Every Day Smoker 0.5 Sex Assigned at Date Recorded Not on file documented as of this encounter Last Filed Vital Signs Vital Sign Reading Time Taken Comments Blood Pressure 182/96 04/05/2011 8:46 AM EDT Pulse 84 04/05/2011 8:46 AM EDT Temperature - - Respiratory Rate - - Oxygen Saturation 98% 04/05/2011 8:46 AM EDT Inhaled Oxygen Concentration - - Weight 78 kg (172 lb) 04/05/2011 8:27 AM EDT Height 166.4 cm (5' 5.5) 04/05/2011 8:27 AM EDT Body Mass Index 28.19 04/05/2011 8:27 AM EDT documented in this encounter Patient Instructions Patient InstructionsShameka Painting RN - 04/05/2011 8:34 AM EDT Pain Management Center Discharge Instructions: [...] today. [x] You received Midazolam 1 mg Fentanyl 50mcg Intravenous to lessen the anxiety/pain of your procedure. [...] or proceed to your local emergency department. MICHELLE Rios documented in this encounter Progress Notes Jc Villarreal MD - 04/08/2011 7:32 AM EDT I was the attending physician supervising the resident in the above care and I was present with the resident for the entire procedure. Shameka Painting RN - 04/05/2011 8:33 AM EDT Pre-Procedure Screening Questions: 1. Status: No 2. 3. Patient states they have a backhaul driver to transport after procedure? Yes 4. Patient taking antibiotics at present? No 5. NPO per Pain Management Center protocol? Yes 6. 7. Patient diabetic: No __ borderline (not treated with medications) __ managed with oral medications __ managed with injected medications 8. Patient routinely taking anticoagulants ? Yes Plavix Date stopped Held for 7 days- per protocol Patient Vital Signs documented in Doc Flowsheets associated with this encounter. Patient Discharge Instructions were reviewed with patient and copy provided to patient. IV anxiolysis: Yes IV placement: Location of IV Insertion: [ ] Right [ ] Left [ ] hand [ ] anterior forearm [ ] posterior forearm [ ] AC [ ] upper arm [ ] other: IV Gauge: [ ] 24G [ ] 22G [ ] 20G After IV insertion completed, IV was secured with occlusive transparent dressing. IV site is patent and intact. Patient is without complaint upon completion of IV insertion. Started by: Dr. Villarreal Initiated by: MICHELLE Rios IV Solution: LR 1000ml - rate as directed by proceduralist Total Volume Intravenous Fluid infused documented in the Medication Administration Record (MAR) Site condition at IV removal: [ x ] Clear [ ] Bruised [ ] other: Administration of IV anxiolysis procedural medications documented in MAR as ordered by proceduralist documented in this encounter Procedure Notes Pily Fonseca MD - 04/05/2011 8:54 AM EDTAssociated Order(s): EPIDURAL STEROID INJECTION Procedure(s): EPIDURAL STEROID INJECTION Pre-Procedure Diagnose(s): Lumbar radiculopathy STERIOID INJECTION PROCEDURE NOTE Gianna Hermosillo has been referred to the [...] patient consent form was signed and witnessed. Standard time-out procedure was performed. Gianna Hermosillo was placed in the prone position on the fluoroscopy table and automated blood pressure cuff and pulse oximeter applied. The skin entry point for entering/approaching the epidural space by a mildine L5-S1 and marked. Following thorough Chlorhexidine preparation [...] with clear epidural spread confirmed with fluoroscopy. Depomedrol followed by 1 ml sterile normal saline was injected. 120mg of depomedrol was injected.There was not any unusual discomfort expressed by Gianna Hermosillo. Gianna Hermosillo's vital signs were stable throughout the procedure and were as recorded in nursing records. Intravenous drugs for sedation and analgesia were given as ordered by me. Midazolam 1 ml and fentanyl 50mcg were given to the patient. Follow up plans and appointments were discussed with Gianna Hermosillo. Post procedure instruction wasgiven as documented in nursing records and having met discharge criteria she was discharged from [facility]. COMMENTS: Patient tolerated the procedure well and there were no complications. documented in this encounter Miscellaneous Notes Miscellaneous - Robert Pineda - 04/15/2011 5:09 PM EDT documented in this encounter Plan of Treatment Not on filedocumented as of this encounter Results Epidural steroid injection (04/08/2011 7:39 AM EDT) Jc Villarreal MD NEUROLOGY ORDERABLES documented in this encounter Visit Diagnoses Diagnosis Lumbar radiculopathy - Primary Thoracic or lumbosacral neuritis or radi culitis, unspecified documented in this encounter Administered Medications Inactive Administered Medications - up to 3 most recent administrations Medication Order MAR Action Action Date Dose Rate Site fentaNYL 50mcg/mL injection Given 04/05/2011 8:35 AM EDT 50 mcg 25 mcg, Intravenous, ONCE PRN, 1 dose, Starting on Fri04/05/11 at 0826, Until Fri04/05/11 at 0835, Pain, Routine fentaNYL 50mcg/mL injection Given 04/05/2011 9:02 AM EDT 50 mcg 25 mcg, Intravenous, ONCE PRN, 1 dose, Starting on Fri04/05/11 at 0851, Until Fri04/05/11 at 0902, Pain, Routine midazolam (VERSED) injection 0.5 mg Given 04/05/2011 8:40 AM EDT 1 mg 0.5 mg, Intravenous, ONCE PRN, 1 dose, Starting on Fri04/05/11 at 0826, Until Fri04/05/11 at 0840, Anxiety, Routine documented in this encounter Care Teams Energy Operations Vice President Relationship Specialty Start Date End Date Jitendra Schwab MD PCP - General 06/19/10 [address] [place] [address] documented as of this encounter
--- OUTSIDE RECORDS SUMMARY | 2022-02-05 12:18 | XMS_ITS | Encounter Summary ---
:1950 Author Organization [facility] [place] [address] Care Team Providers Name Role Phone Jitendra Schwab MD Primary Care Provider Encounter Details Date Type Department Care Team Description 09/10/2010 Office Visit Pain Management at [facility] Jc Villarreal MD [facility] [place] [address] PAIN CLINIC [phone] [place] [id number] (Wo rk) Social History Tobacco Use Types Packs/Day Years Used Date Never Assessed Sex Assigned at Date Recorded Not on file documented as of this encounter Plan of Treatment Not on filedocumented as of this encounter Visit Diagnoses Not on filedocumented in this encounter Care Teams Tip Stitcher Relationship Specialty Start Date End Date Jitendra Schwab MD PCP - General 06/19/10 [address] [place] [address] documented as of this encounter
--- OUTSIDE RECORDS SUMMARY | 2022-02-05 12:18 | XMS_ITS | Encounter Summary ---
:1950 Author Organization [facility] [place] [address] Care Team Providers Name Role Phone Jitendra Schwab MD Primary Care Provider Encounter Details Date Type Department Care Team Description 07/10/2006 Orders Only Neurology at [facility] Jatin Miller MD [facility] [place] [address] NEUROLOGY DEPT. [phone] [place], [place] [address] (Wo rk) Social History Tobacco Use Types Packs/Day Years Used Date Never Assessed Sex Assigned at Date Recorded Not on file documented as of this encounter Plan of Treatment Not on filedocumented as of this encounter Procedures Procedure Name Priority Date/Time Associated Diagnosis Comme nts FILM LIBRARY Routine 07/10/2006 11:23 PM Results for this STORAGE ONLY MR EST procedure ar e in HEAD the results section. documented in this encounter Results Film Library- Storage only MR Head (07/10/2006 11:23 PM EST) Specimen (Source) Anatomical Collection Method Collection Time Re ceived Time Location / / Volume Laterality 07/10/2006 11:23 PM EST Narrative RAD - 03/17/2014 6:10 PM EDT This is a non-reportable exam. Procedure Note Gaurav Puckett - 03/17/2014Formatti ng of this note might be different from the original. This is a non-reportable exam. Jatin Miller MD G FILM LIBRARY ORDERABLES Performing Organization Address City/State/ZIP Code Phon e Number [facility] [address] [facility] [place] [address] documented in this encounter Visit Diagnoses Not on filedocumented in this encounter Care Teams Laundry Aid Relationship Specialty Start Date End Date Jitendra Schwab MD PCP - General 06/19/10 [address] [place] [address] documented as of this encounter
--- OUTSIDE RECORDS SUMMARY | 2022-02-05 12:18 | XMS_ITS | Encounter Summary ---
:1950 Author Organization [facility] [place] [address] Care Team Providers Name Role Phone Jitendra Schwab MD Primary Care Provider Encounter Details Date Type Department Care Team Description 06/13/2011 External Results [facility] Surgery at [facility] Jitendra Schwab MD [facility] cecilio [address] [place] [address] [place] [address] [phone] (Wo rk) Social History Tobacco Use Types Packs/Day Years Used Date Current Every Day Smoker 0.5 Sex Assigned at Date Recorded Not on file documented as of this encounter Plan of Treatment Not on filedocumented as of this encounter Procedures Procedure Name Priority Date/Time Associated Diagnosis Comme nts ORDS - PROVIDER CARE SCAN Routine 06/14/2011 documented in this encounter Results Scan Doc: Ords - Provider Care (06/14/2011) Narrative This result has an attachment that is no t available. Jitendra Schwab MD MEDIA MGR SCAN EXT ORDR/RSLT documented in this encounter Visit Diagnoses Not on filedocumented in this encounter Care Teams Industrial Rehabilitation Consultant Relationship Specialty Start Date End Date Jitendra Schwab MD PCP - General 06/19/10 [address] [place] [address] documented as of this encounter
--- OUTSIDE RECORDS SUMMARY | 2022-02-05 12:18 | XMS_ITS | Encounter Summary ---
:1950 Author Organization [facility] [place] [address] Care Team Providers Name Role Phone Jitendra Schwab MD Primary Care Provider Encounter Details Date Type Department Care Team Description 09/21/2009 Orders Only Neurology at [facility] Jatin Miller MD [facility] [place] [address] NEUROLOGY DEPT. [phone] [place], [place] [address] (Wo rk) Social History Tobacco Use Types Packs/Day Years Used Date Never Assessed Sex Assigned at Date Recorded Not on file documented as of this encounter Plan of Treatment Not on filedocumented as of this encounter Procedures Procedure Name Priority Date/Time Associated Diagnosis Comme nts FILM LIBRARY Routine 09/21/2009 9:16 AM Results f or this STORAGE ONLY MR EST procedure ar e in HEAD the results section. documented in this encounter Results Film Library- Storage only MR Head (09/21/2009 9:16 AM EST) Specimen (Source) Anatomical Collection Method Collection Time Re ceived Time Location / / Volume Laterality 09/21/2009 9:16 AM EST Narrative RAD - 03/17/2014 6:10 PM EDT This is a non-reportable exam. Procedure Note Gaurav Puckett - 03/17/2014Formatti ng of this note might be different from the original. This is a non-reportable exam. Jatin Miller MD [facility] FILM LIBRARY ORDERABLES Performing Organization Address City/State/ZIP Code Phon e Number [facility] RAD [address] [facility] [place] [address] documented in this encounter Visit Diagnoses Not on filedocumented in this encounter Care Teams Veneer Stacker Relationship Specialty Start Date End Date Jitendra Schwab MD PCP - General 06/19/10 [address] [place] [address] documented as of this encounter
--- OUTSIDE RECORDS SUMMARY | 2022-02-05 12:18 | XMS_ITS | Encounter Summary ---
:1950 Author Organization [facility] [place] [address] Care Team Providers Name Role Phone Jitendra Schwab MD Primary Care Provider Encounter Details Date Type Department Care Team Description 04/05/2011 Hospital Encounter XRay at [address] [place] [address] Social History Tobacco Use Types Packs/Day Years Used Date Current Every Day Smoker 0.5 Sex Assigned at Date Recorded Not on file documented as of this encounter Plan of Treatment Not on filedocumented as of this encounter Visit Diagnoses Not on filedocumented in this encounter Care Teams Cattle Manager Relationship Specialty Start Date End Date Jitendra Schwab MD PCP - General 06/19/10 [address] [place] [address] documented as of this encounter
--- OUTSIDE RECORDS SUMMARY | 2022-02-05 12:18 | XMS_ITS | Encounter Summary ---
:1950 Author Organization [facility] [place] [address] Care Team Providers Name Role Phone Jitendra Schwab MD Primary Care Provider Encounter Details Date Type Department Care Team Description 08/02/2011 Procedure visit Pain Management at Leigha Villarreal neration of lumbar or lumbosacral intervertebral disc; [facility] MD Geovanna Spinal stenosis, lumbar region, without neurogenic claudication [facility] [facility] [id number] [place] [address] [facility] Social History Tobacco Use Types Packs/Day Years Used Date Current Every Day Smoker 0.5 Sex Assigned at Date Recorded Not on file documented as of this encounter Last Filed Vital Signs Vital Sign Reading Time Taken Comments Blood Pressure 153/88 08/02/2011 1:32 PM EST Pulse 87 08/02/2011 1:32 PM EST Temperature - - Respiratory Rate - - Oxygen Saturation 97% 08/02/2011 1:32 PM EST Inhaled Oxygen Concentration - - Weight - - Height - - Body Mass Index - - documented in this encounter Patient Instructions Patient InstructionsPosRoselia duffy RN - 08/02/2011 1:34 PM EST Pain Management Center Discharge Instructions: You were seen by Dr. Leigha Villarreal MD who performed lumbar epidural steroid [...] apply heat today. [x] You received Midazolam 2 mg through an intravenous line, to lessen the anxiety/pain of your procedure. DO NOT operate heavy or dangerous equipment/tools, or sign important papers today. Attempt to empty your bladder 4-6 hours after your procedure. You received the following medications: Depo-Medrol 80 mg, Lidocaine and Omnipaque (contrast dye). [...] encounter Progress Notes Roselia Reza RN - 08/02/2011 1:31 PM EST IV anxiolysis: Yes IV placement: Location of IV Insertion: [ ] Right [ x ] Left [ x ] hand [ [...] of IV insertion. Started by: Roselia Reza RN Initiated by: Roselia Reza RN IV Solution: LR 1000ml - rate as directed by proceduralist Total Volume Intravenous Fluid infused documented in the Medication Administration Record (MAR) Site condition at IV removal: [x ] Clear [ ] Bruised [ ] other: Administration of IV anxiolysis procedural medications documented in MAR as ordered by proceduralist Subjective: Patient ID: Gianna Hermosillo is a 61 y.o. female. HPI Review of Systems Objective: Physical Exam Assessment and Plan: No problem-specific visit notes found for this encounter. Roselia Hammond RN - 08/02/2011 1:05 PM EST Pre-Procedure Screening Questions: 1. Status: No 2. 3. Patient states they have a pile driver to transport after procedure? Yes 4. Patient taking antibiotics at present? No 5. NPO per Pain Management Center protocol? Yes 6. 7. Patient diabetic: No __ borderline (not treated with medications) __ managed with oral medications __ managed with injected medications 8. Patient routinely taking anticoagulants ? Yes Date stopped 07/24/2011 Current INR -N/A Patient Vital Signs documented in Doc Flowsheets associated with this encounter. Patient Discharge Instructions were reviewed with patient and copy provided to patient. Leigha Clemons MD - 08/02/2011 1:05 PM EST Lumbar Epidural Steroid Injection Gianna Hermosillo has been referred to the Pain Management Center for epidural steroid injection by Zaheer Gianna Hermosillo was greeted by the nurse who verified patients name and . Patient was then taken to the fluoroscopy suite. COMMENTS Patient returns for her q3-4 months LESI. She has been having these [id number] Gianna Hermosillo was interviewed and the medical [...] into the epidural space. Upon needle placement and loss of resistance there were no paresthesiae or return of blood or CSF through the needle. 1 cc of Omnipaque 240 were injected with clear epidural spread. 80 mg of Depomedrol followed by 1ml sterile normal saline were injected through the needle. There was not any unusual discomfort expressed by Gianna Hermosillo. Gianna Hermosillo 's vital signs were stable throughout the procedure and were as recorded in nursing records. Follow up plans and appointments were discussed with Gianna Hermosillo. Post procedure instruction wasgiven as documented in nursing records and she was discharged in the care of an identified pile driver. 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 Spinal stenosis, lumbar region, without neurogenic claudication documented in this encounter Administered Medications Inactive Administered Medications - up to 3 most recent administrations Medication Order MAR Action Action Date Dose Rate Site iohexol (OMNIPAQUE) injection 1 mL Given 08/02/2011 1:30 PM EST 1 mL 1 mL, Other, ONCE, 1 dose, On Fri08/02/11 at 1330, 49 ml wasted, Routine methylPREDNISolone acetate (depo-MEDROL) Given 08/02/2011 1:30 P M EST 80 mg injection 80 mg 80 mg, Epidural, ONCE, 1 dose, On Fri08/02/11 at 1330, Routine documented in this encounter Care Teams Studio Owner Relationship Specialty Start Date End Date Jitendra Schwab MD PCP - General 06/19/[address] [place] [address] documented as of this encounter
--- OUTSIDE RECORDS SUMMARY | 2022-02-05 12:18 | XMS_ITS | Encounter Summary ---
:1950 Author Organization [facility] [address] Care Team Providers Name Role Phone Jitendra Schwab MD Primary Care Provider Encounter Details Date Type Department Care Team Description 08/02/2011 Office Visit Vascular Surgery at Jacque Anaya Caro tid artery disease [facility] [place] ([place]) [place] [address] Social History Tobacco Use Types Packs/Day Years Used Date Current Every Day Smoker 0.5 Sex Assigned at Date Recorded Not on file documented as of this encounter Plan of Treatment Not on filedocumented as of this encounter Procedures Procedure Name Priority Date/Time Associated Diagnosis Comme nts GREGORIO, LEGS, MULTIPLE Routine 08/02/2011 10:42 AM Carotid artery Results for this LEVELS EST disease procedure are i n the results section. CAROTID DUPLEX, Routine 08/02/2011 10:42 AM Carotid artery Res ults for this BILATERAL EST disease procedure are i n the results section. documented in this encounter Results GREGORIO, legs, multiple levels (08/02/2011 10:42 AM EST) [facility] Method Time Signature VB Text VASCUBASE Report Department: Vascular Surgery Lab Patient: [id number] (LISA HERMOSILLO) CPT Code: 77696 ICD-9: 447.6 Referring Physician: LUDIN MAYER III, MD Indication: Cold feet, ? PVD Diabetes mellitus: ??No Definitions: ??GREGORIO = Ankle / Brachial Systolic Pressure Inde x, TBI = Toe / Brachial Systolic Pressure Index Findings: Right ?Pressure (mmHg) ?? GREGORIO ??Waveform Common Femoral Artery ? Triphasic Pop Fossa ? Biphasic-Rev Dorsalis Pedis (Ankle) Artery ?150 ?0.98 ??Triphasic Posterior Tibial (Ankle) Artery ??157 ?1. 03 ??Triphasic Left ? Pressure (mmHg) ?? GREGORIO ??Waveform Brachial Artery ?153 Common Femoral Artery ? Triphasic pop Fossa ? Bi-Triphasic Dorsalis Pedis (Ankle) Artery ?162 ?1 .06 Posterior Tibial (Ankle) Artery ??169 ?1. 10 Interpretation: RIGHT: No significant lower extremity ar terial occlusive disease identified at rest. Normal ankle/brachial pressure ratios and Doppler wave forms. LEFT: No significant lower extremity arterial oc clusive disease identified at rest. Normal ankle/brachial pressure ratios and Doppler wave forms. Comparison: No previous study in our vascular lab database f or comparison. Signed by ISMAEL LOCKHART on 2011-08-05 11:37:52 PM VB Text End of Report VASCUBASE Report Specimen (Source) Anatomical Collection Method Collection Time Re ceived Time Location / / Volume Laterality 08/02/2011 10:42 AM EST Ludin Mayer III, MD VASCULAR ORDERABLES Performing Organization Address City/State/ZIP Code Phon e Number [facility] Cerebrovascular Duplex, Bilateral (08/02/2011 10:42 AM EST) Component Value Ref Test Analysis Performed At [facility] Range Method Time Signature VB Text VASCUBASE Report Department: Vascular Surgery Lab Patient: [id number] (LISA HERMOSILLO) CPT Code: 95661 ICD-9: 433.10 Referring Physician: JITENDRA SCHWAB Indication: ?? Following carotid disease, ? progression ICD9 Diagnosis Code: 433.10 Findings: Right ICA Proximal ?PSV (cm/s): 97 ?EDV (cm/s): 35 ?ICA/CCA: 1.0 ?Plaque Structure: Echogenic ?Plaque Surface: Irregular ?%Stenosis: 16-49% ICA Distal ?PSV (cm/s): 52 ?EDV (cm/s): 20 ?ICA/CCA: 0.5 CCA Distal ?PSV (cm/s): 95 ?EDV (cm/s): 35 ?%Stenosis: <50% CCA Proximal ?PSV (cm/s): 91 ?EDV (cm/s): 31 External Carotid Artery ?PSV (cm/s): 134 ?EDV (cm/s): 32 ?%Stenosis: <50% Vertebral ?PSV (cm/s): 39 ?EDV (cm/s): 19 Left ICA Proximal ?PSV (cm/s): 240 ?EDV (cm/s): 87 ?ICA/CCA: 2.6 ?Plaque Structure: Echogenic ?Plaque Surface: Irregular ?%Stenosis: 50-59% ICA Distal ?PSV (cm/s): 98 ?EDV (cm/s): 29 ?ICA/CCA: 1.1 CCA Distal ?PSV (cm/s): 92 ?EDV (cm/s): 29 ?%Stenosis: <50% CCA Proximal ?PSV (cm/s): 69 ?EDV (cm/s): 19 External Carotid Artery ?PSV (cm/s): 182 ?EDV (cm/s): 34 ?%Stenosis: <50% Vertebral ?PSV (cm/s): 56 ?EDV (cm/s): 16 Interpretation: RIGHT: There is irregular plaque in the common carotid artery causing 20-25% stenosis by electronic calip ers. There is bulky irregular plaque in the proximal internal carotid artery caus ing 16-49% stenosis when compared to the more distal internal carotid artery. The bifurcation level is in the mid neck. No significant change compared to previous exam 03/26/10. LEFT: There is irregular plaque in the common carotid luis ry causing 40-45% stenosis by electronic calip ers. There is bulky irregular plaque in the proximal internal carotid artery caus ing 50-59% stenosis when compared to the more distal internal carotid artery. The bifurcation level is in t he mid neck. Unable to obtain slightly higher veloc ities as identified on previous exam (PSV 262 cm/s, now 240 cm/s), otherwise, no significant change from previ ous exam 03/26/10. Previous Carotid Studies: Date RIGHT ICA Stenosis PSV Ratio LEFT ICA Stenosis PSV Rati o 16-49% 98 1.23 16-49% 165 1.65 16-49% 127 1.38 50-69% 262 2.88 Current Exam 16-49% 97 1.02 50-59% 240 2.61 Vertebral Artery Data: Antegrade blood flow with normal Doppler waveforms and velocities bilaterally. Accuracy Data: The following statistics are based on comparisons performe d at [facility] between noninvasive carotid artery d uplex data and arteriographic evaluation of the same patients from [id number]. Q / A Sens. Spec. PPV NPV Accuracy Carotid 93% 98% 97% 95% 96% Signed by ISMAEL LOCKHART on 2011-08-05 10:21:44 AM VB Text End of Report VASCUBASE Report Specimen (Source) Anatomical Collection Method Collection Time Re ceived Time Location / / Volume Laterality 08/02/2011 10:42 AM EST Jitendra Schwab MD VASCULAR ORDERABLES Performing Organization Address City/State/ZIP Code Phon e Number [facility] documented in this encounter Visit Diagnoses Diagnosis Carotid artery disease - Primary Unspecified disorders of arteries and ar terioles documented in this encounter Care Teams Shirt Closer Relationship Specialty Start Date End Date Jitendra Schwab MD PCP - General 06/19/10 [address] [place] [address] documented as of this encounter
--- OUTSIDE RECORDS SUMMARY | 2022-02-05 12:18 | XMS_ITS | Encounter Summary ---
:1950 [place] [address] Care Team Providers Name Role Phone Jitendra Schwab MD Primary Care Provider Encounter Details Date Type Department Care Team Description 08/02/2010 Follow-Up Ophthalmology at [facility] Pilar Watters, [facility] [place] [address] OPHTHALMOLOGY DEPT. [phone] [place], [place] [address] (Wo rk) Social History Tobacco Use Types Packs/Day Years Used Date Never Assessed Sex Assigned at Date Recorded Not on file documented as of this encounter Plan of Treatment Not on filedocumented as of this encounter Visit Diagnoses Not on filedocumented in this encounter Care Teams Geodesist Relationship Specialty Start Date End Date Jitendra Schwab MD PCP - General 06/19/10 [address] [place] [address] documented as of this encounter
--- OUTSIDE RECORDS SUMMARY | 2022-02-05 12:18 | XMS_ITS | Encounter Summary ---
:1950 [place] [address] Care Team Providers Name Role Phone Jitendra Schwab MD Primary Care Provider Reason for Visit Reason Comments Radiculopathy Lumbar Encounter Details Date Type Department Care Team Description 07/01/2011 Telephone Pain Management at Vera Oliver [place] [address] Social History Tobacco Use Types Packs/Day Years Used Date Current Every Day Smoker 0.5 Sex Assigned at Date Recorded Not on file documented as of this encounter Miscellaneous Notes Telephone Encounter - Vera Oliver RN - 07/01/2011 5:24 PM EST Fluoroscopy Procedure Request Procedure Requested: LESI Date(s) of Last Procedure: 04/05/11 Did requested procedure relieve pain? __x_ Yes - For how long? Until recently Patient taking anticoagulants? _x__ Yes. Patient understands that they will be contacted by rn picu once permission obtained from prescriber- Dr. Schwab to temporarily discontinue anticoagulant- per [facility] Management [facility] protocol. Changes in usual pain pattern or pertinent recent trauma or surgery? __x_ No, patient transferred or will be contacted by rn picu to make appointment for requested procedure. Patient's [...] on filedocumented in this encounter Care Teams Straight Line Edger Relationship Specialty Start Date End Date Jitendra Schwab MD PCP - General 06/19/10 [address] [place] [address] documented as of this encounter
[2022-02-05] MEDS: cefTRIAXone 2 GM/50 ML BAG IVPB (12:19)
--- NOTE | 2022-02-05 12:19 | NUR.NOTE ---
Nursing Note: 1210 - Dr. Ruggiero aware of patient's dropping BP - verbal order to change NS infusion to bolus. Family has been updated on situation and [place] [facility] [place] VS as documented. [facility], patient left in stable but critical condition.
--- OUTSIDE RECORDS SUMMARY | 2022-02-05 12:19 | XMS_ITS | Encounter Summary ---
:1950 Author Organization [facility] Address [address] [place] [address] Care Team Providers Name Role Phone Unavailable Primary Care Provider Unavailable Encounter Details Date Type Department Care Team Description 09/12/2000 Results Only [facility] - Joselo Garcia MD [employer] [address] [facility] [address] [place], [place] [address] [place] [address] [phone] Social History Tobacco Use Types Packs/Day Years Used Date Never Assessed Sex Assigned at Date Recorded Not on file documented as of this encounter Plan of Treatment Not on filedocumented as of this encounter Procedures Procedure Name Priority Date/Time Associated Diagnosis Comme nts SURGICAL PATHOLOGY Routine 09/12/2000 0:00 EST Re sults for this procedure are i n the results section. documented in this encounter Results SURGICAL PATHOLOGY (09/12/2000 0:00 EST) Pathology Report: SURGICAL PATHOLOGY REPORT CALDERA A TYRESECESAR Reports generated via electronic interface contain danny ginal data; LAB however they are lacking the format of the original re port. Caution should be taken when reading/interpreting unfo rmatted reports. Name: ? LISA HERMOSILLO ? Accession #: ? [id number] ? : ? 1950 (Age: 50) ??F ? Collect Date: ? 09/12/2000 ? Location: ? [facility] ? Receive Date: ? 001 ? Provider: JOSELO GARCIA MD Copy to: CHUY MERIDA MD ? Final Pathologic Diagnosis: ? Gallbladder, cholecystectomy: 1. ?Chronic cholecystitis. 2. ?Cholesterolosis. 3. ?Cholelithiasis. Document reviewed and electronically signed by: CHUY MATOS MD Report ??Date: 09/16/2000 12:02 By the signature above, the attending physician certif ies that he/she has personally conducted a gross and/or microscopic examin ation of the described specimens and rendered or confirmed the above diagnosi s. Specimen(s) Received: ? Gallbladder with contents Clinical History: ? Cholelithiasis, biliary colic Gross Description: ? Received in formalin labelled [place] and #1 gallbladder with contents is the product of a previously opened ch olecystectomy which measures 8.5 cm in length, 3.7 cm in inner circ umference, and is surfaced by a caputo wrinkled serosa. Upon sectioning, the mucosa is caputo-red, smooth to velvety, and the underlying wall averages 0.2 cm in thic kness. ??The lumen contains a minimal amount of green slightly mucoid bile and six yellow-brown multif aceted choleliths aggregating 3.5 x 2.5 x 2.0 cm. ??The cystic duct measures 0.5 cm in length, 0.3 cm in diameter, and is not grossly patent. ??The cystic duct node is not grossly identified. ??Three represen tative sections including the cystic duct margin are submitted in one cassette. ??(Jordy Buenrostro/good End of Report Specimen Performing Organization Address City/State/ZIP Code Phon e Number [facility] [address] [place] [address] [facility] [address] [place] [address] documented in this encounter Visit Diagnoses Not on filedocumented in this encounter
[2022-02-05 12:30] LABS: COVID-19 PCR Negative (Negative)
--- NOTE | 2022-02-05 13:12 | NUR.NOTE ---
Nursing Note: Flight crew to give Lasix ordered by Dr. Ruggiero. Other antibiotics unable to be started because patient is departing.
== END 2022-02-05 12:46 | disposition short-term general hospital (02) ==
PROVIDERS: Emergency Provider Physician Assistant; PCP Internal Medicine
DX: I21.19 ST elevation (STEMI) myocardial infarction involving other coronary artery of inferior wall (principal); J44.1 Chronic obstructive pulmonary disease with (acute) exacerbation; I95.9 Hypotension, unspecified; F17.200 Nicotine dependence, unspecified, uncomplicated; I10 Essential (primary) hypertension; Z20.822 Contact with and (suspected) exposure to COVID-19; Z79.51 Long term (current) use of inhaled steroids
CPT/HCPCS: 80053; 87635; 93005; 96361; 96365; 96368; 96375; 99291; 99292; 71045; 83735; 84484; 85025; 85610; 85730; 93010; J2060; J2270; J2930; J3490; J7620